=== PATIENT | male | born 1935 | race Caucasian/White ===

== ENCOUNTER → 2017-01-24 | Outpatient (CLI) | payer MEDICARE ==
--- NOTE | 2017-01-24 11:56 | EST ---
DATE OF SERVICE: 01/24/2017 AGE: 81Y SEX: M HT: 67" WT: 185 lbs. Protocol Devan: X Other: Stress Stage: 2 Dur. of Exercise: 5:00 *Heart Rate Blood Pressure *Rest: 69 Rest: 135/75 * *Max. Achieved: 142 Maximum BP: 215/71 85% PMHR: 120 100% PMHR: 141 *METS: 7.0 INDICATIONS: Abnormal EKG. MEDICATIONS: Aspirin, losartan, atorvastatin. Pretesting physical examination showed a heart rate of 69, pressure is 135/75 mmHg. Baseline EKG showed sinus rhythm with RBBB. The patient exercised on the treadmill according to Devan protocol for a total of 5 minutes and achieved 7 of METs with max heart rate was 142, which is about 100% of maximum predicted heart rate. Maximum blood pressure 215/71 mmHg. Clinically, the patient developed chest discomfort without any chest pain. The EKG did not show any significant ST or T-wave abnormalities consistent with ischemia. CONCLUSION: 1. Good exercise capacity. 2. Normal EKG in response to exercise.
== END | disposition home or self-care (01) ==
LOC: RADNMMAIN 10:58
PROVIDERS: ATTEND Internal Medicine Geriatric Medicine
DX: R94.31 Abnormal electrocardiogram [ECG] [EKG] (principal)
CPT/HCPCS: 93017

== ENCOUNTER → 2017-06-06 | Outpatient (CLI) | payer MEDICARE ==
--- NOTE | 2017-06-06 12:16 | US ---
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 Stenosis EXAM MEASUREMENTS: RIGHT: Peak Systolic Velocity (PSV) cm/sec ----- Right CCA: 79.1 ----- Right ICA: 91.0 ----- Right ECA: 109.6 ICA/CCA ratio: 1.2 RIGHT: End Diastole cm/sec ----- Right CCA: 21.0 ----- Right ICA: 28.2 ----- Right ECA: 12.4 LEFT: Peak Systolic Velocity (PSV) cm/sec ----- Left CCA: 85.5 ----- Left ICA: 72.1 ----- Left ECA: 105.7 ICA/CCA ratio: 0.8 LEFT: End Diastole cm/sec ----- Left CCA: 20.5 ----- Left ICA: 21.5 ----- Left ECA: 13.7 VERTEBRALS (direction of flow): Right Vertebral: Antegrade Left Vertebral: Antegrade Rhythm: Normal Moderate plaque noted bilateral bifurcations. No evidence of significant stenosis IMPRESSION: Moderate carotid bulb plaquing bilaterally without hemodynamically significant stenosis of either carotid system.
--- NOTE | 2017-06-06 19:02 | ECHOF ---
Referral Reason:I34.0 nonrheumatic mitral regurgitation MEASUREMENTS -------- HEIGHT: 170.2 cm WEIGHT: 81.6 kg BP: RVIDd: 3.4 cm (< 3.3) IVSd: 1.0 cm (0.6 - 1.1) LVIDd: 4.9 cm (3.9 - 5.3) LVPWd: 1.1 cm (0.6 - 1.1) IVSs: 1.8 cm LVIDs: 3.4 cm LVPWs: 1.9 cm LAESV Index (A-L): 27.11 ml/m Ao Diam: 3.6 cm (2.0 - 3.7) AV Cusp: 1.6 cm (1.5 - 2.6) LA Diam: 4.4 cm (2.7 - 3.8) MV E Drew: 0.96 m/s MV DecT: 390 ms MV A Drew: 1.47 m/s MV E/A Ratio: 0.65 RAP: 5.00 mmHg RVSP: 30.04 mmHg FINDINGS -------- Sinus rhythm. This was a technically adequate study. The left ventricular size is normal. There is borderline concentric left ventricular hypertrophy. Overall left ventricular systolic function is normal with, an EF between 55 - 60 %. The right ventricle is normal in size and function. LA is midly dilated 29-33ml/m2. The right atrium is normal in size. There is moderate aortic valve sclerosis. There is no evidence of aortic regurgitation. There is no evidence of aortic stenosis. The mitral valve leaflets are mild to moderately thickened. Moderate mitral annular calcification present. There is trace to mild mitral regurgitation. Mild tricuspid regurgitation present. Right ventricular systolic pressure is normal at < 35 mmHg. There is no evidence of pulmonary hypertension. Trace/mild (physiologic) pulmonic regurgitation. The aortic root size is normal. IVC Not well visulized. The pericardium is normal. There is no pericardial effusion. CONCLUSIONS -------- 1. Sinus rhythm. 2. There is trace to mild mitral regurgitation. 3. Mild tricuspid regurgitation present. 4. Right ventricular systolic pressure is normal at < 35 mmHg. 5. There is no evidence of pulmonary hypertension. 6. Trace/mild (physiologic) pulmonic regurgitation. 7. The aortic root size is normal. 8. IVC Not well visulized. 9. There is no pericardial effusion. 10. This was a technically adequate study. 11. The left ventricular size is normal. 12. There is borderline concentric left ventricular hypertrophy. 13. Overall left ventricular systolic function is normal with, an EF between 55 - 60 %. 14. LA is midly dilated 29-33ml/m2. 15. There is moderate aortic valve sclerosis. 16. The mitral valve leaflets are mild to moderately thickened. 17. Moderate mitral annular calcification present. INSPECTOR REPAIRER: Aravind Bee RDCS
== END | disposition home or self-care (01) ==
LOC: RADUSWWP 10:13
PROVIDERS: ATTEND Internal Medicine Geriatric Medicine
DX: I08.3 Combined rheumatic disorders of mitral, aortic and tricuspid valves (principal); I65.23 Occlusion and stenosis of bilateral carotid arteries
CPT/HCPCS: 93306; 93880

== ENCOUNTER → 2017-12-17 | Outpatient (CLI) | payer MEDICARE ==
--- NOTE | 2017-12-17 08:44 | US ---
EXAMINATION TYPE: US carotid duplex BILAT DATE OF EXAM: 12/17/2017 COMPARISON: US 06/06/2017 CLINICAL HISTORY: Occlusion/stenosis of unspec carotid artery I65.29. Occasional dizziness EXAM MEASUREMENTS: RIGHT: Peak Systolic Velocity (PSV) cm/sec ----- Right CCA: 104.0 ----- Right ICA: 91.4 ----- Right ECA: 198.9 ICA/CCA ratio: 0.9 RIGHT: End Diastole cm/sec ----- Right CCA: 19.8 ----- Right ICA: 22.8 ----- Right ECA: 20.0 LEFT: Peak Systolic Velocity (PSV) cm/sec ----- Left CCA: 104.3 ----- Left ICA: 96.3 ----- Left ECA: 182.6 ICA/CCA ratio: 0.9 LEFT: End Diastole cm/sec ----- Left CCA: 13.9 ----- Left ICA: 22.0 ----- Left ECA: 13.0 VERTEBRALS (direction of flow): Right Vertebral: Antegrade Left Vertebral: Antegrade Rhythm: Normal Mild to moderate amount of plaque visualized in bilateral bulbs. Elevated velocities visualized in bi lateral ECAs. IMPRESSION: 1. Plaque noted bilaterally with no significant hemodynamic stenosis within the internal carotid chio ry. Criteria for Assigning % of Stenosis / Diameter reduction (Estimation based on the indirect measurements of the internal carotid artery velocities (ICA PSV). 1. Normal (no stenosis)=ICA PSV < 125 cm/s: ratio < 2.0: ICA EDV<40 cm/s. 2. Less than 50% stenosis=ICA PSV < 125 cm/s: ratio < 2.0: ICA EDV<40 cm/s. 3. 50 to 69% stenosis=ICA PSV of 125 to 230 cm/s: ration 2.0 ? 4.0: ICA EDV 40-100 cm/s. 4. Greater than 70% stenosis to near occlusion= ICA PSV > 230 cm/s: ratio > 4.0: ICA EDV > 100 cm/s. 5. Near occlusion= ICA PSV velocities may be low or undetectable: variable ratio and ICA EDV. 6. Total occlusion=unable to detect flow.
== END | disposition home or self-care (01) ==
LOC: RADUSWWP 08:13
PROVIDERS: ATTEND Internal Medicine Geriatric Medicine
DX: I65.23 Occlusion and stenosis of bilateral carotid arteries (principal)
CPT/HCPCS: 93880

== ENCOUNTER 2018-01-22 16:20 | Inpatient (IN) | payer MEDICARE ==
--- NOTE | 2018-01-22 16:50 | ED ---
Chest Pain HPI - General Chief Complaint: Chest Pain Stated Complaint: Chest Pain Time Seen by Provider: 01/22/18 16:39 Source: patient, RN notes reviewed Mode of arrival: ambulatory Limitations: no limitations - History of Present Illness Initial Comments: This is a 82-year-old male who presents with complaints of about one week of intermittent midsternal chest discomfort he describes it as a tightness at the worst 5/10 severity sometimes feels better when he stretches out he has no fevers chills nausea vomiting sweats cough or phlegm production with it. It just bothersome because is been intermittent and recurrent. Nothing seems make it better nothing seems to make it worse. He is pain-free MD Complaint: chest pain - Related Data Home Medications Medication Instructions Recorded Confirmed Calcium Polycarbophil [Fibercon] 625 mg PO Q72H 03/21/14 01/22/18 Losartan Potassium [Losartan 100 mg PO HS 03/21/14 01/22/18 Potassium] Atorvastatin [Lipitor] 10 mg PO HS 01/22/18 01/22/18 Gabapentin [Neurontin] 200 mg PO HS 01/22/18 01/22/18 Allergies Allergy/AdvReac Type Severity Reaction Status Date / Time No Known Allergies Allergy Verified 01/22/18 16:59 Review of Systems ROS Statement: Those systems with pertinent positive or pertinent negative responses have been documented in the HPI. ROS Other: All systems not noted in ROS Statement are negative. EKG Findings - EKG Results: EKG: interpreted by KELSEY, sinus rhythm (Sinus rhythm right bundle-branch block old inferior changes rate was 75 appear interval 202 QRS duration 132 daily since QTC of 398/444) Past Medical History Past Medical History: GERD/Reflux, Hypertension Additional Past Medical History / Comment(s): Dr watching blood sugars; borderline per pt. Polio at age 16. Ringing in ears. History of Any Multi-Drug Resistant Organisms: None Reported Past Surgical History: Bladder Surgery, Hernia Repair Additional Past Surgical History / Comment(s): stomach ulcer surgery. CATARACT SURGERY. Past Anesthesia/Blood Transfusion Reactions: No Reported Reaction Past Psychological History: No Psychological Hx Reported Smoking Status: Former smoker - Past Family History Father Family Medical History: Cancer Additional Family Medical History / Comment(s): BLADDER CANCER General Exam - General Exam Comments Initial Comments: This is a well-developed well-nourished awake alert oriented 3 male Limitations: no limitations General appearance: alert, in no apparent distress Head exam: Present: atraumatic, normocephalic, normal inspection Eye exam: Present: normal appearance, PERRL, EOMI. Absent: scleral icterus, conjunctival injection, periorbital swelling ENT exam: Present: normal exam, mucous membranes moist Neck exam: Present: normal inspection. Absent: tenderness, meningismus, lymphadenopathy Respiratory exam: Present: normal lung sounds bilaterally. Absent: respiratory distress, wheezes, rales, rhonchi, stridor, chest wall tenderness Cardiovascular Exam: Present: regular rate, normal rhythm, normal heart sounds. Absent: systolic murmur, diastolic murmur, rubs, gallop, clicks GI/Abdominal exam: Present: soft, normal bowel sounds. Absent: distended, tenderness, guarding, rebound, rigid Extremities exam: Present: normal inspection, full ROM, normal capillary refill. Absent: tenderness, pedal edema, joint swelling, calf tenderness Back exam: Present: normal inspection Neurological exam: Present: alert, oriented X3, CN II-XII intact Psychiatric exam: Present: normal affect, normal mood Skin exam: Present: warm, dry, intact, normal color. Absent: rash Course Vital Signs 01/22/18 01/22/18 01/22/18 16:29 17:17 18:47 Temperature 97.8 F 97.6 F Pulse Rate 78 79 64 Respiratory 16 16 15 Rate Blood Pressure 151/90 174/75 181/84 O2 Sat by Pulse 98 96 95 Oximetry 01/22/18 21:53 Temperature 97.3 F L Pulse Rate 68 Respiratory 18 Rate Blood Pressure 167/91 O2 Sat by Pulse 98 Oximetry Chest Pain MDM - MDM I did review the imaging and report no acute findings no evidence of PE. I did discuss case with Dr. Urban the patient will be admitted with cardiology consultation. Critical Care Time Critical Care Time: Yes Critical Care Time: 31 minutes of critical care time which includes initial presentation with history physical labs x-rays several reevaluation the patient discussed with the patient family regarding findings scheduled the admitting physicians initial orders and documentation of the above. Disposition Clinical Impression: Chest pain, Unstable angina pectoris Disposition: ADMITTED IP TO THIS [facility] Condition: Stable Referrals: Valdez Cortez MD [Primary Care Provider] - 1-2 days
[2018-01-22 17:03] LABS: Basophils # (A) 0.1 k/uL (0-0.2); Basophils % (A) 1 %; Eosinophils # (A) 0.3 k/uL (0-0.7); Eosinophils % (A) 4 %; HCT 37.7 % (39.0-53.0); HGB 12.8 gm/dL (13.0-17.5); Lymphocytes # (A) 1.7 k/uL (1.0-4.8); Lymphocytes % (A) 23 %; MCH 29.1 pg (25.0-35.0); MCV 85.7 fL (80.0-100.0); Mean Platelet Volume 7.3; Monocytes # (A) 0.6 k/uL (0-1.0); Monocytes % (A) 8 %; Neutrophils # (A) 4.5 k/uL (1.3-7.7); Neutrophils % (A) 61 %; Platelet Count 227 k/uL (150-450); RDW 14.5 % (11.5-15.5); WBC 7.3 k/uL (3.8-10.6)
[2018-01-22 17:14] LABS: Albumin 4.4 g/dL (3.5-5.0); Calcium 9.6 mg/dL (8.4-10.2); Magnesium 2.1 mg/dL (1.6-2.3); Potassium 4.7 mmol/L (3.5-5.1); Total Bilirubin 0.3 mg/dL (0.2-1.3); Total Protein 7.1 g/dL (6.3-8.2)
[2018-01-22 17:16] LABS: Partial Thromboplastin Time 25.5 sec (22.0-30.0); Prothrombin Time 9.9 sec (9.0-12.0)
[2018-01-22 17:17] LABS: D-Dimer 0.7 mg/L FEU (<0.60)
[2018-01-22 17:38] LABS: Creatine Kinase MB 10.5 ng/mL (0.0-2.4); Troponin I 0.035 ng/mL (0.000-0.034)
--- NOTE | 2018-01-22 19:19 | XR ---
EXAMINATION: XR chest 2V DATE AND TIME: 01/22/2018 6:14 PM ORDERING PROVIDER: Sameer Ovalle MD CLINICAL INDICATION: Chest Pain and dyspnea TECHNIQUE: PA and lateral COMPARISON: None. DESCRIPTION: The lungs are clear. The pleural spaces are negative. The cardiac silhouette is mildly enlarged. The mediastinal and pleural silhouettes are unremarkable. The skeletal structures are intact without focal findings. The soft tissues are unremarkable. IMPRESSION: NO ACUTE PROCESS.
--- NOTE | 2018-01-22 19:41 | CT ---
EXAMINATION TYPE: CT angio chest with contrast and with 3-D reconstruction renderings. DATE OF EXAM: 01/22/2018 7:29 PM COMPARISON: NONE HISTORY: Chest pressure and shortness of breath. CT DLP: 357 mGycm. Automated exposure control for dose reduction was used. CONTRAST: CTA scan of the thorax is performed with IV Contrast, patient injected with 77 mL of Isovue 370, pulmonary embolism protocol. 3-D reconstruction renderings. FINDINGS: LUNGS AND PLEURAL SPACES: The lungs are grossly clear, there is no concerning parenchymal mass or nod ule identified. There is no pleural effusion or pneumothorax seen. The tracheobronchial tree is pa tent. MEDIASTINUM: There is satisfactory enhancement of the pulmonary artery and its branches, there is no CT evidence for pulmonary embolism. There are no greater than 1 cm hilar or mediastinal lymph nodes. The aorta is unremarkable. There is mild cardiomegaly with prominent proximal and mid left and right coronary calcifications. No pericardial effusion. OTHER: No additional significant abnormality is seen. IMPRESSION: NEGATIVE FOR PULMONARY EMBOLISM. PROMINENT LEFT AND RIGHT CORONARY CALCIFICATIONS WITH MILD CARDIOMEGALY.
[2018-01-22] MEDS ORDERED: HEPARIN SODIUM,PORCINE 5,000 UNIT/ML 1 ML VIAL IV ONE (23:00)
[2018-01-22] MEDS ORDERED: NITROGLYCERIN SL TABS 0.4 MG TAB SUBLINGUAL PRN ×2 (23:00→23:26)
[2018-01-22] MEDS: HEPARIN SODIUM,PORCINE/D5W PMX 25,000 UNIT in DEXTROSE/WATER 1 500ML.BAG IV SCH (23:30)
[2018-01-22] MEDS ORDERED: HEPARIN SODIUM,PORCINE/D5W PMX 25,000 UNIT in DEXTROSE/WATER 1 500ML.BAG IV SCH (23:30)
[2018-01-23 00:20] LABS: Creatine Kinase MB 9.4 ng/mL (0.0-2.4); Troponin I 0.056 ng/mL (0.000-0.034)
[2018-01-23] MEDS: NITROGLYCERIN OINT 1 INCH/GM PACKET TOPICAL SCH ×4 (01:06→15:44)
[2018-01-23 07:03] LABS: Cholesterol 176 mg/dL (<200); Creatine Kinase MB 11.6 ng/mL (0.0-2.4); HDL Cholesterol 57 mg/dL (40-60); LDL Cholesterol,Calculated 90 mg/dL (0-99); Triglycerides 146 mg/dL (<150); Troponin I 0.069 ng/mL (0.000-0.034)
[2018-01-23] MEDS: ASPIRIN 325 MG TAB PO SCH (08:07)
[2018-01-23] MEDS ORDERED: ASPIRIN 325 MG TAB PO SCH (09:00)
[2018-01-23] MEDS ORDERED: REGADENOSON 0.4 MG/5 ML SYRINGE IV ONE (10:10)
[2018-01-23] MEDS ORDERED: AMINOPHYLLINE 500 MG/20 ML VIAL IV PRN (10:10)
[2018-01-23] MEDS ORDERED: CALCIUM POLYCARBOPHIL 625 MG TAB PO SCH (11:00)
[2018-01-23] MEDS: SODIUM CHLORIDE 0.9% 1,000 ML IV SCH (11:11)
[2018-01-23] MEDS: METOPROLOL TARTRATE 12.5 MG TAB PO SCH (11:13)
--- NOTE | 2018-01-23 13:12 | P.HPIM ---
History of Present Illness H&P Date: 01/23/18 Chief Complaint: chest pain. This is an 82-year-old male one of Dr. Cortez with a previous medical history significant for hypertension and hypertensive cardiovascular disease with left ventricular hypertrophy, hyperlipidemia, GERD, patient presented to the emergency department at [facility] yesterday with the recurrent chest pain associated with increased shortness of breath, and chest tightness for the past week or so, patient had a twelve-lead EKG that did not show any evidence of acute of normalities, however his cardiac enzymes are elevated, surprisingly his d-dimer was elevated he ended up going for computed tomography scan of the chest that was negative for pulmonary medicine however it did show significant calcification in the right and left coronary arteries, subsequently the patient was admitted to the hospital he is scheduled to go for left heart catheterization tomorrow morning. Review of Systems Constitutional: Denies anorexia, Denies chronic headaches, Denies lethargy, Denies weakness, Denies weight gain Eyes: denies blurred vision, denies bulging eye, denies decreased vision Ears: deny: decreased hearing Ears, nose, mouth and throat: Denies dysphagia, Denies sore throat Cardiovascular: Reports chest pain, Reports decreased exercise tolerance, Reports dyspnea on exertion, Reports high blood pressure, Reports shortness of breath, Denies phlebitis, Denies rapid heart beat, Denies syncope Respiratory: Denies congestion, Denies cough, Denies cough with sputum, Denies home oxygen, Denies sleep apnea, Denies snoring, Denies wheezing Gastrointestinal: Reports heartburn, Denies abdominal pain, Denies melena, Denies nausea, Denies vomiting Genitourinary: Denies dysuria, Denies polyuria Musculoskeletal: Denies myalgias Musculoskeletal: absent: ankle pain, ankle stiffness, ankle swelling, elbow pain , elbow stiffness, elbow swelling, foot pain, foot stiffness, foot swelling, hand pain, hand stiffness, hand swelling, hip pain, hip stiffness, hip swelling , knee pain, knee stiffness, knee swelling, shoulder pain, shoulder stiffness, shoulder swelling, wrist pain, wrist stiffness, wrist swelling Neurological: Denies numbness, Denies weakness Psychiatric: Denies anxiety, Denies depression Endocrine: Denies fatigue, Denies weight change Past Medical History Past Medical History: Chest Pain / Angina, GERD/Reflux, Hyperlipidemia, Hypertension, Prostate Disorder Additional Past Medical History / Comment(s): Dr watching blood sugars; borderline per pt. Polio at age 16. Ringing in ears. History of Any Multi-Drug Resistant Organisms: None Reported Past Surgical History: Back Surgery, Bladder Surgery, Hernia Repair Additional Past Surgical History / Comment(s): stomach ulcer surgery. CATARACT SURGERY. bladder cancer; back surger (laminectomy apr 2016) Past Anesthesia/Blood Transfusion Reactions: No Reported Reaction Past Psychological History: No Psychological Hx Reported Smoking Status: Former smoker (patient is followed by to pick every day smoked for about 4 years ago 22 was 49-year-old.) Past Alcohol Use History: Daily (patient drinks about 6 beers of the bases or 2 cocktails.) Additional Past Alcohol Use History / Comment(s): QUIT SMOKING 1984 STARTED SMOKING 1946 Past Drug Use History: None Reported - Past Family History Father Family Medical History: Cancer (father at age of 86 from bladder cancer.) Additional Family Medical History / Comment(s): BLADDER CANCER Mother Family Medical History: Coronary Artery Disease (CAD) (mother at age of 60 from the CABG and diabetes complications), Diabetes Mellitus Additional Family Medical History / Comment(s): had open heart surgery Brother(s) Family Medical History: Coronary Artery Disease (CAD) (patient had 3 brothers one of them from CAD the other one from lung cancer and MS the third one from COPD.) Daughter(s) Family Medical History: No Reported History (patient has 2 daughters no major medical problems) Son(s) Family Medical History: No Reported History (patient has one son no major medical problems.) Medications and Allergies Home Medications Medication Instructions Recorded Confirmed Type Calcium Polycarbophil [Fibercon] 625 mg PO Q72H 03/21/14 01/22/18 History Losartan Potassium [Losartan 100 mg PO HS 03/21/14 01/22/18 History Potassium] Atorvastatin [Lipitor] 10 mg PO HS 01/22/18 01/22/18 History Gabapentin [Neurontin] 200 mg PO HS 01/22/18 01/22/18 History Allergies Allergy/AdvReac Type Severity Reaction Status Date / Time No Known Allergies Allergy Verified 01/22/18 16:59 Physical Exam Vitals: Vital Signs Temp Pulse Pulse Resp BP BP Pulse Ox 01/23/18 08:00 97.3 F L 61 18 144/77 97 01/23/18 03:27 60 18 01/23/18 03:20 97.2 F L 60 18 131/79 95 01/23/18 01:20 62 17 01/23/18 00:30 97 F L 62 17 150/95 01/23/18 00:09 60 16 163/79 95 01/23/18 00:02 97 F L 62 17 149/96 95 01/22/18 23:06 62 16 137/65 96 01/22/18 23:00 95 01/22/18 21:53 97.3 F L 68 18 167/91 98 01/22/18 18:47 97.6 F 64 15 181/84 95 01/22/18 17:17 79 16 174/75 96 01/22/18 16:29 97.8 F 78 16 151/90 98 Intake and Output 01/22/18 01/23/18 01/23/18 22:59 06:59 14:59 Intake Total 260 153.659 Balance 260 153.659 Intake: IV 60 0.9@10ml/hr 60 Intake, IV Titration 153.659 Amount Heparin Sodium,Porcine/ 153.659 D5w Pmx 25,000 unit In Dextrose/Water 1 500ml. bag @ 12 UNITS/KG/HR 20. 13 mls/hr IV .Q24H [facility] Rx #:[id number] Oral 200 0 Other: Voiding Method Toilet # Voids 1 Weight 83.915 kg 86.5 kg - Constitutional General appearance: average body habitus, no acute distress - EENT Eyes: anicteric sclerae, EOMI, PERRLA, no ptosis, no scleral icterus, normal appearance ENT: hearing grossly normal, NA/AT, normal oropharynx, no thrush Ears: bilateral: normal - Neck Neck: no lymphadenopathy, normal ROM, no rigidity, no stridor, no thyromegaly Carotids: bilateral: upstroke normal Thyroid: bilateral: normal size - Respiratory Respiratory: bilateral: diminished, negative: dullness, rales, rhonchi, wheezing , prolonged expiration, prolonged inspiration - Cardiovascular Rhythm: regular Heart sounds: normal: S1, S2 Abnormal Heart Sounds: systolic murmur, no S3 Gallop, no S4 Gallop - Gastrointestinal General gastrointestinal: normal bowel sounds, soft, no splenomegaly, no tenderness, no umbilical hernia, no ventral hernia - Integumentary Integumentary: normal, normal turgor - Neurologic Neurologic: CNII-XII intact - Musculoskeletal Musculoskeletal: strength equal bilaterally - Psychiatric Psychiatric: A&O x's 3, appropriate affect, intact judgment & insight Results CBC & Chem 7: 01/22/18 16:45 01/22/18 16:45 Labs: Abnormal Lab Results - Last 24 Hours (Table) 01/22/18 01/22/18 01/22/18 Range/Units 16:45 16:45 16:45 Hgb 12.8 L (13.0-17.5) gm/dL Hct 37.7 L (39.0-53.0) % APTT (22.0-30.0) sec D-Dimer (<0.60) mg/L FEU Chloride 108 H (98-107) mmol/L Carbon Dioxide 18 L (22-30) mmol/L BUN 22 H (9-20) mg/dL Total Creatine Kinase 437 H (55-170) U/L CK-MB (CK-2) 10.5 H* (0.0-2.4) ng/mL Troponin I 0.035 H* (0.000-0.034) ng/mL 01/22/18 01/22/18 01/23/18 Range/Units 16:45 23:16 06:11 Hgb (13.0-17.5) gm/dL Hct (39.0-53.0) % APTT (22.0-30.0) sec D-Dimer 0.70 H (<0.60) mg/L FEU Chloride (98-107) mmol/L Carbon Dioxide (22-30) mmol/L BUN (9-20) mg/dL Total Creatine Kinase 415 H 528 H (55-170) U/L CK-MB (CK-2) 9.4 H* 11.6 H* (0.0-2.4) ng/mL Troponin I 0.056 H* 0.069 H* (0.000-0.034) ng/mL 01/23/18 Range/Units 06:11 Hgb (13.0-17.5) gm/dL Hct (39.0-53.0) % APTT 57.7 H (22.0-30.0) sec D-Dimer (<0.60) mg/L FEU Chloride (98-107) mmol/L Carbon Dioxide (22-30) mmol/L BUN (9-20) mg/dL Total Creatine Kinase (55-170) U/L CK-MB (CK-2) (0.0-2.4) ng/mL Troponin I (0.000-0.034) ng/mL Thrombosis Risk Factor Assmnt - DVT/VTE Prophylaxis DVT/VTE Prophylaxis: Pharmacologic Prophylaxis ordered - Choose All That Apply Each Risk Factor Represents 3 Points: Age 75 years or older Thrombosis Risk Factor Assessment Total Risk Factor Score: 3 Thrombosis Risk Factor Assessment Level: Moderate Risk Assessment and Plan Assessment: Assessment and plan: 1. Chest pain with slight elevation of the troponin stenosis of non-ST elevation MS. Patient was started on heparin drip, aspirin 325 mg once every day, Lipitor 80 mg orally once every day, metoprolol 25 mg orally twice every day, cardiology consultation for left heart catheterization. Echocardiogram will be obtained as well. 2. Hypertension and hypertensive cardio vascular disease. Continue patient on losartan 100 mg orally once every day as well as metoprolol 12.5 mg orally once every day. 3. Hyperlipidemia. Continue Lipitor 80 mg orally once every day. 4. Peripheral neuropathy. Continue gabapentin 200 mg at bedtime. 5. Post polio. 6. DVT prophylaxis. Currently on heparin drip. 7. GI prophylaxis. Continue PPI. 8. Admit to inpatient. Estimate a length of stay 2 midnights. 9. Full code.
--- NOTE | 2018-01-23 14:48 | CONS ---
CONSULTATION This is the 82-year-old gentleman, a patient who sees Dr. Urban and myself. He has history of hypertensive, cardiovascular disease. He has had a previous stress test that was unremarkable as recently as January. He had a regular stress test walked for over 5 minutes without any EKG changes. However, for 1 week he has been experiencing exertional chest pressure suggestive of angina occurring more frequently. His troponin is mildly elevated in the borderline range, raising the possibility of non-ST elevation ND. He is generally not a complainer, but his symptoms are quite significant. CPK-MB is also elevated. Clinical picture suggests unstable angina/non ST elevation ND and I am recommending coronary angiography. I discussed with the patient the rationale, risks, benefits, and options for cardiac cath and PCI. He understands all details and wishes to proceed with the procedure. He also had a D-dimer elevation, but a CT angiography did not reveal any evidence of pulmonary embolism. There is a significant calcification of the coronary arteries noted. At the time of my evaluation, she is comfortable resting without symptoms. PAST MEDICAL HISTORY: 1. History of hypertension. 2. Hyperlipidemia. 3. No evidence of prior myocardial infarction or CVA with a negative stress test about a year ago. MEDICATIONS: At home include gabapentin, losartan, atorvastatin, calcium supplements allergies none. REVIEW OF SYSTEMS: Unremarkable other than above-mentioned facts. EXAMINATION: Blood pressure 130/70, pulse rate is 60 70 per minute regular HEENT: Unremarkable. Fundus was not examined by me. NECK: Supple. No JVD. I do not hear a carotid bruit. There is no thyromegaly heart exam reveals S1, S2 with a short systolic murmur at the base. Lungs are clear. Abdomen is soft, nontender. Lower extremities reveal normal pulses. No edema. Central nervous system is normal EKG revealed a sinus mechanism with a right bundle branch corrected revealed a sinus mechanism with a right bundle branch block pattern and borderline first-degree AV block. Nondiagnostic inferior Q-waves are noted. Neck is no acute changes. IMPRESSION: 1. For acute ischemic syndrome, probable non ST elevation ND. 2. Hypertension. 3. Hyperlipidemia. RECOMMENDATION: Recommendations I am recommending that we add a small dose of beta kary and continue aspirin and I increase the statin to a total atorvastatin 20 mg daily, put him on normal saline 75 mg 75 mL/h till tomorrow and proceed with coronary angiography and intervention if necessary. The rationale risks benefits options related to coronary angiography were explained to the patient. He understands all details and wishes to proceed with the procedure. MMEMMYL / IJN: [id number] /
[2018-01-23] MEDS ORDERED: ATORVASTATIN 20 MG TAB PO ONE (21:00)
[2018-01-23] MEDS: HEPARIN SODIUM,PORCINE/D5W PMX 25,000 UNIT in DEXTROSE/WATER 1 500ML.BAG IV SCH (22:53)
[2018-01-23] MEDS: GABAPENTIN 100 MG CAP PO SCH (22:59)
[2018-01-23] MEDS: LOSARTAN 50 MG TAB PO SCH (22:59)
[2018-01-24] MEDS: SODIUM CHLORIDE 0.9% 1,000 ML IV SCH ×3 (03:03→16:20)
[2018-01-24] MEDS: NITROGLYCERIN OINT 1 INCH/GM PACKET TOPICAL SCH ×3 (03:03→13:46)
[2018-01-24] MEDS ORDERED: ATORVASTATIN 80 MG TAB PO ONE (06:00)
[2018-01-24] MEDS ORDERED: ASPIRIN 325 MG TAB PO ONE (06:00)
[2018-01-24] MEDS: ASPIRIN 325 MG TAB PO SCH (06:42)
[2018-01-24] MEDS: METOPROLOL TARTRATE 12.5 MG TAB PO SCH (06:42)
[2018-01-24] MEDS ORDERED: IV FLUID CONTINUATION 350 ML IV ONE (11:00)
[2018-01-24] MEDS ORDERED: VERAPAMIL 2.5 MG/ML 2 ML AMP ONE (11:02)
[2018-01-24] MEDS ORDERED: LIDOCAINE 2% INJ 20 MG/ML (20 ML MDV) ONE (11:02)
[2018-01-24] MEDS ORDERED: MIDAZOLAM 2 MG/2 ML VIAL ONE (11:02)
[2018-01-24] MEDS ORDERED: diphenhydrAMINE 50 MG/ML 1 ML VIAL ONE (11:02)
[2018-01-24] MEDS ORDERED: MIDAZOLAM 2 MG/2 ML VIAL IVP ONE (11:16)
[2018-01-24] MEDS ORDERED: diphenhydrAMINE 50 MG/ML 1 ML VIAL IVP ONE (11:16)
[2018-01-24] MEDS: LIDOCAINE 2% INJ 20 MG/ML SQ ONE ×2 (11:20→11:58)
[2018-01-24] MEDS ORDERED: fentaNYL (PF) 50 MCG/ML 2 ML AMP ONE (11:21)
[2018-01-24] MEDS: fentaNYL (PF) 50 MCG/ML 2 ML AMP IVP ONE ×2 (11:22→12:51)
[2018-01-24] MEDS ORDERED: HEPARIN SODIUM 1,000 UN/ML (10ML VL) ONE (11:24)
[2018-01-24] MEDS ORDERED: VERAPAMIL SYRINGE (5 MG/10 ML) INTRAARTER ONE (11:24)
[2018-01-24] MEDS ORDERED: HEPARIN SODIUM 1,000 UN/ML (10ML VL) IV ONE (11:25)
[2018-01-24] MEDS ORDERED: BIVALIRUDIN BOLUS 250 MG/50 ML IV ONE (11:48)
[2018-01-24] MEDS ORDERED: BIVALIRUDIN 250 MG in SODIUM CHLORIDE 0.9% 50 ML IV ONE (11:49)
[2018-01-24] MEDS ORDERED: IOPAMIDOL-370 100ML BTL INJ ONE ×2 (12:00→12:47)
[2018-01-24] MEDS: NITROGLYCERIN 1000MCG/10ML SYRINGE INTRACORON ONE ×2 (12:42→12:46)
[2018-01-24] MEDS ORDERED: CLOPIDOGREL 75 MG TAB ONE (12:49)
[2018-01-24] MEDS ORDERED: CLOPIDOGREL 75 MG TAB PO ONE (12:54)
[2018-01-24] MEDS ORDERED: MAG HYDROX/AL HYDROX/SIMETH 30 ML CUP PO PRN (13:49)
[2018-01-24] MEDS ORDERED: ZOLPIDEM 5 MG TAB PO PRN (13:49)
[2018-01-24] MEDS ORDERED: RX INFO: IV CONTRAST WAS GIVEN 1 EACH MISC MISCELLANE PRN (13:49)
[2018-01-24] MEDS ORDERED: ATROPINE SULFATE 0.1 MG/ML 10ML SYRINGE IV PRN (13:49)
[2018-01-24] MEDS ORDERED: NITROGLYCERIN SL TABS 0.4 MG TAB SUBLINGUAL PRN (13:49)
[2018-01-24 14:35] VITALS: BMI 29.7
--- NOTE | 2018-01-24 16:43 | P.PN ---
Subjective Progress Note Date: 01/24/18 Principal diagnosis: Non-ST segment myocardial infarction presenting with unstable angina This is an 82-year-old male one of Dr. Cortez with a previous medical history significant for hypertension and hypertensive cardiovascular disease with left ventricular hypertrophy, hyperlipidemia, GERD, patient presented to the emergency department at [facility] yesterday with the recurrent chest pain associated with increased shortness of breath, and chest tightness for the past week or so, patient had a twelve-lead EKG that did not show any evidence of acute of normalities, however his cardiac enzymes are elevated, surprisingly his d-dimer was elevated he ended up going for computed tomography scan of the chest that was negative for pulmonary medicine however it did show significant calcification in the right and left coronary arteries, subsequently the patient was admitted to the hospital he is scheduled to go for left heart catheterization tomorrow morning. 01/24: Patient just came back 2 hours ago after a heart cath, patient reports one vessel that was stented and was 99% occluded, patient would return in 2-3 weeks according to him to have another stent performed, formal Report pending patient remains chest pain-free, no bradycardia Objective - Vital Signs Vital signs: Vital Signs Temp 97.9 F 01/24/18 08:20 Pulse 78 01/24/18 14:34 Resp 14 01/24/18 15:52 BP 150/72 01/24/18 15:34 Pulse Ox 95 01/24/18 14:34 Intake & Output 01/23/18 01/24/18 01/24/18 18:59 06:59 18:59 Intake Total 153.659 748.926 7241 Balance 153.659 232.195 2789 Weight 86.1 kg 86.1 kg Intake: IV 293 Intake, IV Titration 153.659 317.048 450 Amount Heparin Sodium,Porcine/ 153.659 317.048 D5w Pmx 25,000 unit In Dextrose/Water 1 500ml. bag @ 12 UNITS/KG/HR 20. 13 mls/hr IV .Q24H MENDEZ Rx #:[id number] Sodium Chloride 0.9% 1, 450 000 ml @ 75 mls/hr IV . [id number] MENDEZ Rx#:[id number] Oral 0 440 Other: Voiding Method Toilet Toilet # Voids 1 - Constitutional General appearance: Present: cooperative, no acute distress - EENT Eyes: Present: anicteric sclerae, EOMI, dentition normal, normal appearance ENT: Present: hearing grossly normal, NA/AT, normal oropharynx - Neck Neck: Present: normal ROM - Respiratory Respiratory: bilateral: CTA, negative: dullness, wheezing, prolonged expiration , prolonged inspiration - Cardiovascular Rhythm: regular Heart sounds: normal: S1, S2 Abnormal Heart Sounds: Absent: systolic murmur, diastolic murmur, rub, S3 Gallop , S4 Gallop, click, other - Gastrointestinal General gastrointestinal: Present: normal bowel sounds, soft - Neurologic Neurologic: Present: CNII-XII intact - Musculoskeletal Musculoskeletal: Present: gait normal, strength equal bilaterally - Psychiatric Psychiatric: Present: A&O x's 3, appropriate affect - Labs CBC & Chem 7: 01/22/18 16:45 01/22/18 16:45 Labs: Abnormal Lab Results - Last 24 Hours (Table) 01/24/18 Range/Units 06:04 APTT 49.0 H (22.0-30.0) sec Assessment and Plan Plan: 1. Chest pain with slight elevation of the troponin stenosis of non-ST elevation UT. Patient was started on heparin drip, aspirin 325 mg once every day, Lipitor 80 mg orally once every day, metoprolol 25 mg orally twice every day, cardiology consultation for left heart catheterization. Echocardiogram will be obtained as well. Currently pending Cardiac cath performed 01/24/2018, coronary disease stenosis noted, no preliminary formal report yet, stent placed on 99% One vessel, has 2 vessel disease 2. Hypertension and hypertensive cardio vascular disease. Continue patient on losartan 100 mg orally once every day as well as metoprolol 12.5 mg orally once every day. 3. Hyperlipidemia. Continue Lipitor 80 mg orally once every day. 4. Peripheral neuropathy. Continue gabapentin 200 mg at bedtime. 5. Post polio. 6. DVT prophylaxis. Currently on heparin drip. 7. GI prophylaxis. Continue PPI. 8. Admit to inpatient. Estimate a length of stay 2 midnights. 9. Full code.
--- NOTE | 2018-01-24 17:11 | CC ---
CARDIAC CATHETERIZATION REPORT DATE OF SERVICE: 01/24/2018 PROCEDURES: 1. Left heart catheterization and coronary angiography. 2. Percutaneous transluminal coronary angioplasty and stenting of complex calcified proximal right coronary artery with a drug-eluting stent. PERFORMED BY: Dr. Angela Hay. Moderate conscious sedation time was 109 minutes and patient was administered fentanyl, Benadryl and his oxygen saturation, hemodynamics and vital signs were monitored very closely. CLINICAL INFORMATION: Mr. Anibal Oviedo is an 82-year-old gentleman with history of hypertension and hyperlipidemia who presented to the hospital yesterday with symptoms strongly suggestive of angina with mild elevation of troponin suggestive of [id number] MO. After stabilizing him, he was advised coronary angiography, given his presentation, and there was evidence of significant coronary calcification on a CT angiography which was also performed. I discussed the rationale for cardiac cath with the patient, and daughter. They understood all details and wished to proceed with the procedure. PROCEDURE NOTE: Under local anesthesia and strict aseptic precautions, a 6-Indonesian introducer was used and placed in the right radial artery. Using an Ultimate 1 catheter, I performed selective coronary angiography of the left coronary artery. There was a severe tortuosity at the junction of the brachial axillary artery and also at the entry into the ascending aorta. However, I was able to get selective coronary angiography of the left system with good pictures. I then switched over to a JR 3.5 catheter, and with this I was able to get selective coronary angiography of the right coronary artery and also checked LV pressures with the same catheter but did not perform LV gram. I noted that he had a calcified proximal RCA lesion of nearly 90% or more in a very eccentric area. The entire vessel was heavily calcified. There was also a significant lesion in the obtuse marginal branch of circumflex which was about a 2.25 to 2.5 caliber vessel of about 70%, again in a calcified area. LAD did not have significant disease, but there were minor diffuse irregularities. Rest of circumflex was also unremarkable. Distal RCA also had a 60% lesion as well before bifurcation. I recommended intervention that was performed in the same setting. LV pressures were performed, but LV gram was not performed. FINDINGS: Left ventricular end-diastolic pressure was about 16 mmHg without any gradient across the aortic valve. LEFT MAIN CORONARY ARTERY: Short, patent, disease-free vessel that bifurcates into LAD and circumflex. Left main itself is free of significant disease. This is a short calcified vessel. LEFT ANTERIOR DESCENDING CORONARY ARTERY: This is a good-caliber vessel. It extends along the anterior wall. There is about a 30% narrowing in the mid portion. The vessel is heavily calcified. Several diagonal branches and several septal branches are seen, free of significant disease, and it runs all the way to the apex to curve over the apex to supply the inferoapical portion of the left ventricle. LEFT POSTERIOR CIRCUMFLEX CORONARY ARTERY: This is a nondominant vessel, gives off a single obtuse marginal that has an eccentric area of narrowing of 70% with calcification, and then the caliber of the vessel improves. The circumflex then continues distally and gives off a posterolateral branch. There are minor irregularities, but no significant disease is noted in the circumflex system. The distal posterolateral branch seems to also have a 30% to 40% narrowing. The second obtuse marginal appears to be the significant lesion, best seen in a 31-degree caudal projection frame #33. Circumflex has also a first obtuse marginal which has about a 40% lesion, and distal posterolateral branch has about a 30% to 35% lesion. RIGHT CORONARY ARTERY: Heavily calcified dominant vessel has a proximal lesion in a heavily calcified segment, eccentric in nature, with ulceration. This lesion is at least 90% or more. Beyond it the caliber improves, and distally towards the bifurcation there is about a 50% narrowing and there is a smaller PLV and larger PDA, both of which supply a fair amount of myocardium. The right coronary artery can be seen without angiography because of heavy calcification. LV gram was not performed. RECOMMENDATION: I recommended PCI of RCA and performed this in the same setting. PCI PROCEDURE DETAILS: I attempted PCI from the radial approach, but because of extreme tortuosity in the brachial artery as it enters into the ascending aorta, I recommended that we switch over to the femoral approach. I therefore gained access into the right femoral artery under local anesthesia and strict aseptic precautions and used a [facility] catheter and cannulated the right coronary artery. I used a run-through wire to cross the lesion. Wire was kept distally. I tried to advance a 3.0, 12 mm NC Trek balloon, but I had great difficulty because of calcification. I used a 1.5 caliber Trek balloon. With this I dilated the proximal lesion and then also the proximal segment prior to the lesion, and again I used a 2.0 caliber NC Trek balloon. With this I gave a second inflation. I then advanced a BMW wire next to the run-through wire. With 2 wires in position riding on the BMW wire, I was able to advance a 3.0 caliber 12 mm long Xience stent and deployed this at 14 atmospheres with excellent angiographic result. The patient had chest pain and inferior ST elevation. I then thought I should attempt a distal RCA lesion, but I felt that this was not critical. However, I had considerable difficulty advancing any stent beyond the existing stent in the proximal RCA because of the angulation of the wire and the wire bias. I therefore felt that the distal lesion also improved remarkably and the lesion was no more than 50% with a good flow, so I did not pursue the distal intervention. The branches of the RCA demonstrated very good flow; especially the PDA was of a good caliber. There was therefore a 50% lesion in the distal RCA just before bifurcation, which was not intervened. The sheath was taken out and a Perclose device used to secure hemostasis, and because of some oozing I applied a FemoStop. The TR band was applied to the right radial site with the saturation in the fingers of more than 93%. Excellent angiographic result of proximal RCA was achieved. Distal RCA had a 40% to 50% lesion which was not intervened and the obtuse marginal lesion also will be dealt with at a different time. Results were discussed with the patient and family and he was then sent to the room in a stable condition. MMODL / IJN: [id number] /
--- NOTE | 2018-01-24 17:11 | LTR ---
January 24, 2018 To: Dr. Cortez Re: Anibal Oviedo (39) Dear Dr. Cortez, Thank you for the opportunity to participate in the care of Mr. Anibal Oviedo. I am pleased to report to you that I was able to dilate his proximal RCA, which was a very significant, heavily calcified lesion with excellent angiographic result. Distally there is a 50% lesion which I did not address because of technical difficulties and also because of the fact that the lesion is not very critical, and we will pursue it at a later time if it becomes significant on the basis of a stress test. His obtuse marginal lesion will be dealt with at a later time, probably in the next 2 to 3 weeks. Please call if you have further questions. Thanks again for your referral. With kindest regards. Sincerely yours, Angela SINCLAIRL / IJN: [id number] /
[2018-01-24] MEDS ORDERED: ATORVASTATIN 80 MG TAB PO SCH (21:00)
--- NOTE | 2018-01-24 21:48 | PN ---
PROGRESS NOTE Mr. Oviedo is a gentleman who came in with chest discomfort suggestive of angina, had mild troponin elevation, has hypertension, hyperlipidemia. I advised cardiac cath and PCI if indicated. Risks, benefits, options, rationale were explained to the patient, and daughter. They understand all details and wished to proceed with the procedure. Vital signs are stable. S1, S2 heard normally. Lungs are clear. Abdomen and lower extremities unchanged. MMODL / IJN: [id number] /
[2018-01-24] MEDS: LOSARTAN 50 MG TAB PO SCH (22:15)
[2018-01-24] MEDS: GABAPENTIN 100 MG CAP PO SCH (22:15)
[2018-01-25] MEDS: SODIUM CHLORIDE 0.9% 1,000 ML IV SCH ×2 (05:12→05:13)
[2018-01-25 06:16] VITALS: RESP 16
[2018-01-25 06:38] LABS: Basophils % (A) 1 %; Eosinophils # (A) 0.3 k/uL (0-0.7); Eosinophils % (A) 5 %; HCT 34.4 % (39.0-53.0); HGB 11.4 gm/dL (13.0-17.5); Lymphocytes # (A) 1.5 k/uL (1.0-4.8); Lymphocytes % (A) 24 %; MCH 28.9 pg (25.0-35.0); MCHC 33.1 g/dL (31.0-37.0); MCV 87.2 fL (80.0-100.0); Monocytes # (A) 0.4 k/uL (0-1.0); Monocytes % (A) 7 %; Neutrophils # (A) 3.7 k/uL (1.3-7.7); Neutrophils % (A) 61 %; Platelet Count 182 k/uL (150-450); RBC 3.94 m/uL (4.30-5.90); RDW 15.1 % (11.5-15.5); WBC 6.1 k/uL (3.8-10.6)
[2018-01-25 06:47] LABS: Calcium 8.9 mg/dL (8.4-10.2); Potassium 4.5 mmol/L (3.5-5.1)
[2018-01-25] MEDS: METOPROLOL TARTRATE 12.5 MG TAB PO SCH (08:35)
[2018-01-25] MEDS ORDERED: ASPIRIN 81 MG PO SCH (09:00)
[2018-01-25 11:55] VITALS: BP 106/58; PULSE 58; TEMP 97
[2018-01-25] MEDS ORDERED: CLOPIDOGREL 75 MG TAB PO SCH (12:00)
--- NOTE | 2018-01-25 15:59 | P.DS ---
Providers Date of admission: 01/23/18 16:07 Attending physician: Lyly Urban Consults: 01/22/18 23:00 Consult Physician Urgent Consulting Provider: Martha Cristina Consult Reason/Comments: Chest pain Do you want consulting provider notified?: Yes 01/24/18 13:49 Consult Physician Routine Consulting Provider: [facility] Consult Reason/Comments: Post Interventional patient Do you want consulting provider notified?: Already Contacted Primary care physician: Valdez Cortez [facility] Course: This is an 82-year-old male one of Dr. Cortez with a previous medical history significant for hypertension and hypertensive cardiovascular disease with left ventricular hypertrophy, hyperlipidemia, GERD, patient presented to the emergency department at [facility] yesterday with the recurrent chest pain associated with increased shortness of breath, and chest tightness for the past week or so, patient had a twelve-lead EKG that did not show any evidence of acute of normalities, however his cardiac enzymes are elevated, surprisingly his d-dimer was elevated he ended up going for computed tomography scan of the chest that was negative for pulmonary medicine however it did show significant calcification in the right and left coronary arteries, subsequently the patient was admitted to the hospital he is scheduled to go for left heart catheterization tomorrow morning. 01/24: Patient just came back 2 hours ago after a heart cath, patient reports one vessel that was stented and was 99% occluded, patient would return in 2-3 weeks according to him to have another stent performed, formal Report pending patient remains chest pain-free, no bradycardia 01/25, patient stable, no chest pain or anginal symptoms, patient was cleared by cardiology, and vitals are stable, patient feels good to go home today. Final cardiac cath report to left heart cath, percutaneous transluminal coronary angioplasty and stenting of complex calcified proximal right coronary artery with drug-eluting stent, left circumflex 70% narrowing at the obtuse marginal, distal posterolateral branch 30-40% narrowing, first obtuse marginal branch was 40% lesion, left anterior descending 30% narrowing left main patent, patient 's to come back for a staged intervention with an upcoming procedure for stenting of the obtuse marginal lesion and distal RCA lesion in 2-3 weeks FINAL DIAGNOSIS 1. Chest pain with slight elevation of the troponin stenosis of non-ST elevation [place]. Patient was started on heparin drip, aspirin 325 mg once every day, and dual platelet treatments, Lipitor 80 mg orally once every day, metoprolol 25 mg orally twice every day, cardiology consultation for left heart catheterization. Echocardiogram will be obtained as well. Currently pending Cardiac cath performed 01/24/2018, coronary disease stenosis noted, no preliminary formal report yet, stent placed on 99% One vessel, has 2 vessel disease cardiac cath report to left heart cath, percutaneous transluminal coronary angioplasty and stenting of complex calcified proximal right coronary artery with drug-eluting stent, left circumflex 70% narrowing at the obtuse marginal, distal posterolateral branch 30-40% narrowing, first obtuse marginal branch was 40% lesion, left anterior descending 30% narrowing left main patent , patient's to come back for a staged intervention with an upcoming procedure for stenting of the obtuse marginal lesion and distal RCA lesion in 2-3 weeks 2. Hypertension and hypertensive cardio vascular disease. Continue patient on losartan 100 mg orally once every day as well as metoprolol 12.5 mg orally once every day. 3. Hyperlipidemia. Continue Lipitor 80 mg orally once every day. Discontinue 10 mg Lipitor at home 4. Peripheral neuropathy. Continue gabapentin 200 mg at bedtime. 5. Post polio. 6. Daily alcohol intake, patient was recommended to abstain as much as possible from alcohol exposure Full code. Discharge Medication List Calcium Polycarbophil [Fibercon] 625 mg PO Q72H 03/21/14 [History] Losartan Potassium 100 mg PO HS 03/21/14 [History] Gabapentin [Neurontin] 200 mg PO HS 01/22/18 [History] Aspirin 81 mg PO DAILY chew 01/25/18 [Rx] Atorvastatin [Lipitor] 80 mg PO HS #30 tab 01/25/18 [Rx] Clopidogrel [Plavix] 75 mg PO DAILY #30 tab 01/25/18 [Rx] Metoprolol Tartrate [Lopressor] 12.5 mg PO DAILY #30 tab 01/25/18 [Rx] Nitroglycerin Sl Tabs [Nitrostat] 0.4 mg SUBLINGUAL Q5M PRN #25 tab 01/25/18 [Rx ] Patient Condition at Discharge: Stable Plan - Discharge Summary Discharge Rx Participant: No New Discharge Prescriptions: New Aspirin 81 mg PO DAILY chew Atorvastatin [Lipitor] 80 mg PO HS #30 tab Clopidogrel [Plavix] 75 mg PO DAILY #30 tab Metoprolol Tartrate [Lopressor] 12.5 mg PO DAILY #30 tab Nitroglycerin Sl Tabs [Nitrostat] 0.4 mg SUBLINGUAL Q5M PRN #25 tab PRN Reason: Chest Pain Continue Losartan Potassium 100 mg PO HS Calcium Polycarbophil [Fibercon] 625 mg PO Q72H Gabapentin [Neurontin] 200 mg PO HS Discontinued Atorvastatin [Lipitor] 10 mg PO HS Discharge Medication List Calcium Polycarbophil [Fibercon] 625 mg PO Q72H 03/21/14 [History] Losartan Potassium 100 mg PO HS 03/21/14 [History] Gabapentin [Neurontin] 200 mg PO HS 01/22/18 [History] Aspirin 81 mg PO DAILY chew 01/25/18 [Rx] Atorvastatin [Lipitor] 80 mg PO HS #30 tab 01/25/18 [Rx] Clopidogrel [Plavix] 75 mg PO DAILY #30 tab 01/25/18 [Rx] Metoprolol Tartrate [Lopressor] 12.5 mg PO DAILY #30 tab 01/25/18 [Rx] Nitroglycerin Sl Tabs [Nitrostat] 0.4 mg SUBLINGUAL Q5M PRN #25 tab 01/25/18 [Rx ] Follow up Appointment(s)/Referral(s): Patrick Hay MD [STAFF PHYSICIAN] - 01/28/18 (Dr Hay's office will call you with an appointment time for January 28) Valdez Cortez MD [Primary Care Provider] - 1-2 days (call the office tomorrow for appointment) Patient Instructions/Handouts: *[facility] - After Heart Catheterization - Index Clerk Instructions Discharge Disposition: HOME SELF-CARE
--- NOTE | 2018-01-25 16:43 | PN ---
PROGRESS NOTE Mr. Oviedo underwent stenting of a proximal RCA which was a heavily calcified vessel with a good result. He is doing well today. His right groin and cath sites are clean and dry with a good pulse. Vital signs are stable. S1-S2 heard normally. Lungs are clear. Abdomen and lower extremity exam is unchanged. I have advised him doing to ambulate and if he has no further symptoms, he can be discharged and I will see him in the office next Friday. He has a circumflex marginal lesion and also a distal RCA lesion which will be addressed at a later date. I advised him not to do any strenuous activity after discharge and reviewed with him all his medications including dual antiplatelet therapy and statin agents at 80 mg daily. MMODL / IJN: [id number] /
[2018-01-25] MEDS ORDERED: ATORVASTATIN 20 MG TAB PO SCH (21:00)
== END 2018-01-25 15:09 | disposition home or self-care (01) | DRG 247 ==
LOC: EC 16:20 → 6SEL 23:00 → OBSVTOIN 01-23 16:07 → 6SEL 01-24 13:19
PROVIDERS: ADMIT Internal Medicine; ATTEND Internal Medicine
PROC: 4A023N7 Measurement of Cardiac Sampling and Pressure, Left Heart, Percutaneous Approach (ICD-10-PCS; principal; 2018-01-23)
PROC: B2111ZZ Fluoroscopy of Multiple Coronary Arteries using Low Osmolar Contrast (ICD-10-PCS; principal; 2018-01-23)
PROC: 027034Z Dilation of Coronary Artery, One Artery with Drug-eluting Intraluminal Device, Percutaneous Approach (ICD-10-PCS; principal; 2018-01-23)
DX: I21.4 Non-ST elevation (NSTEMI) myocardial infarction (principal); E78.5 Hyperlipidemia, unspecified; G62.9 Polyneuropathy, unspecified; I11.9 Hypertensive heart disease without heart failure; I25.110 Atherosclerotic heart disease of native coronary artery with unstable angina pectoris; K21.9 Gastro-esophageal reflux disease without esophagitis; I45.10 Unspecified right bundle-branch block; I44.0 Atrioventricular block, first degree; I25.84 Coronary atherosclerosis due to calcified coronary lesion; Z79.82 Long term (current) use of aspirin; Z79.899 Other long term (current) drug therapy; Z80.1 Family history of malignant neoplasm of trachea, bronchus and lung; Z80.52 Family history of malignant neoplasm of bladder; Z82.49 Family history of ischemic heart disease and other diseases of the circulatory system; Z82.5 Family history of asthma and other chronic lower respiratory diseases; Z83.3 Family history of diabetes mellitus; Z85.51 Personal history of malignant neoplasm of bladder; Z86.12 Personal history of poliomyelitis; Z87.11 Personal history of peptic ulcer disease; Z87.891 Personal history of nicotine dependence
CPT/HCPCS: 36415; 71046; 71275; 80048; 80053; 80061; 82150; 82550; 82553; 83690; 83735; 83880; 84484; 85025; 85379; 85610; 85730; 93005; 93458; 94760; 96365; 96376; 99291

== ENCOUNTER → 2018-02-04 | Outpatient (CLI) | payer MEDICARE ==
[2018-02-04 09:25] LABS: Calcium 9.4 mg/dL (8.4-10.2); Potassium 5.3 mmol/L (3.5-5.1)
[2018-02-04 09:50] LABS: HCT 36.2 % (39.0-53.0); HGB 12.1 gm/dL (13.0-17.5); MCH 29.5 pg (25.0-35.0); MCHC 33.5 g/dL (31.0-37.0); MCV 88.1 fL (80.0-100.0); Mean Platelet Volume 7.1; Platelet Count 300 k/uL (150-450); RBC 4.11 m/uL (4.30-5.90); RDW 14.8 % (11.5-15.5)
== END | disposition home or self-care (01) ==
LOC: LABWHC1 08:29
PROVIDERS: ATTEND Internal Medicine Interventional Cardiology
DX: I10 Essential (primary) hypertension (principal); I25.10 Atherosclerotic heart disease of native coronary artery without angina pectoris
CPT/HCPCS: 36415; 80048; 85027

== ENCOUNTER 2018-02-17 08:02 | Day surgery (SDC) | payer MEDICARE ==
[~2018-02-17 08:02] MED LIST: ALPRAZolam 0.25 MG TAB PO PRN; ALPRAZolam 0.5 MG TAB PO PRN; ASPIRIN 325 MG TAB PO STA; ATORVASTATIN 80 MG TAB PO STA; NITROGLYCERIN SL TABS 0.4 MG TAB SUBLINGUAL PRN; SODIUM CHLORIDE 0.9% 1,000 ML in EMPTY BAG 1 BAG IV ONE
[2018-02-17 08:35] LABS: Basophils # (A) 0.1 k/uL (0-0.2); Basophils % (A) 1 %; Eosinophils # (A) 0.5 k/uL (0-0.7); Eosinophils % (A) 6 %; HCT 35.5 % (39.0-53.0); Lymphocytes # (A) 1.3 k/uL (1.0-4.8); Lymphocytes % (A) 18 %; MCH 29.7 pg (25.0-35.0); MCHC 33.8 g/dL (31.0-37.0); Mean Platelet Volume 6.7; Monocytes # (A) 0.5 k/uL (0-1.0); Monocytes % (A) 7 %; Neutrophils % (A) 66 %; Platelet Count 262 k/uL (150-450); RBC 4.04 m/uL (4.30-5.90); RDW 14.7 % (11.5-15.5); WBC 7.5 k/uL (3.8-10.6)
[2018-02-17 09:05] LABS: Calcium 9.4 mg/dL (8.4-10.2); Potassium 4.2 mmol/L (3.5-5.1)
[2018-02-17] MEDS: MIDAZOLAM 2 MG/2 ML VIAL IVP ONE ×2 (09:16→09:24)
[2018-02-17] MEDS ORDERED: diphenhydrAMINE 50 MG/ML 1 ML VIAL IVP ONE (09:24)
[2018-02-17] MEDS ORDERED: LIDOCAINE 1% INJ 10MG/ML (10 ML MDV) SQ ONE (09:29)
[2018-02-17] MEDS: NITROGLYCERIN 1000MCG/10ML SYRINGE INTRACORON ONE ×2 (09:36→09:59)
[2018-02-17] MEDS ORDERED: BIVALIRUDIN BOLUS 250 MG/50 ML IV ONE (09:50)
[2018-02-17] MEDS ORDERED: BIVALIRUDIN 250 MG in SODIUM CHLORIDE 0.9% 50 ML IV ONE (09:50)
[2018-02-17] MEDS ORDERED: IOPAMIDOL-370 100ML BTL INJ ONE ×2 (09:53→10:09)
[2018-02-17] MEDS ORDERED: CLOPIDOGREL 75 MG TAB PO ONE (10:09)
[2018-02-17] MEDS ORDERED: RX INFO: IV CONTRAST WAS GIVEN 1 EACH MISC MISCELLANE PRN (10:14)
[2018-02-17] MEDS ORDERED: ZOLPIDEM 5 MG TAB PO PRN (10:14)
[2018-02-17] MEDS ORDERED: ATROPINE SULFATE 0.1 MG/ML 10ML SYRINGE IV PRN (10:14)
[2018-02-17] MEDS ORDERED: MAG HYDROX/AL HYDROX/SIMETH 30 ML CUP PO PRN (10:14)
[2018-02-17] MEDS ORDERED: NITROGLYCERIN SL TABS 0.4 MG TAB SUBLINGUAL PRN (10:14)
--- NOTE | 2018-02-17 11:16 | PTCA ---
PERCUTANEOUSTRANS CORORONARY ANGIOGRAPHY DATE OF SERVICE: 02/17/2018. PROCEDURE: 1. Selective coronary angiography of right coronary artery. 2. PTCA and stenting of circumflex marginal with a drug-eluting stent. PERFORMED BY: Dr. Nia Hay. ANESTHESIA: Moderate conscious sedation time was 40 minutes. Patient was administered Versed and Benadryl and his oxygen saturation and hemodynamics were watched closely. CLINICAL INFORMATION: Mr. Anibal Oviedo is an 82-year-old gentleman with history of hypertension, hyperlipidemia, family history of CAD who presented with a non-ST elevation [place] and underwent stenting of a very complex calcified proximal RCA performed on 01/24/2018. He presented. He was advised staged intervention of circumflex and brought in for the procedure electively. Risks, benefits, options and rationale were explained. PROCEDURE NOTE: Under local anesthesia and strict aseptic precautions, a 6-Bulgarian introducer was placed in the right femoral artery. Using a standard right diagnostic right guide in guide catheter of Rusty type, I performed selective coronary angiography of the right coronary artery and noted that the RCA that was stented on 01/24/2018 was widely patent. I then recommended intervention of circumflex marginal that was performed in the same setting. I used initially a standard left guide and subsequently switched over to a XB without success and finally used a Q-curved 3.5 left guide catheter. With this I was able to cannulate the left coronary artery. I had difficulty getting access into the circumflex. With a run-through wire and after pulling the guide catheter back, I was able to selectively advance the wire into the circumflex marginal. Wire was kept distally. Without predilatation, I performed stenting of circumflex marginal with a 2.5 caliber 8 mm long Xience stent at 12 atmospheres. Patient had mild chest discomfort. No EKG changes. Excellent angiographic result without complication was achieved. The sheath was taken out and Angio-Seal device used to secure hemostasis and was sent to the room in a stable condition. Patient received Angiomax bolus and infusion as per protocol and he was already on aspirin and Plavix. He received an additional 150 mg of Plavix. Excellent angiographic result without complication was achieved and results were discussed with the patient and family and I expect he will be discharged tomorrow if he remains stable. The left anterior descending does not have any significant disease, but there is moderate calcification noted. MMODL / IJN: [id number] /
--- NOTE | 2018-02-17 11:22 | LTR ---
DATE OF SERVICE: 02/17/2018 RE: Anibal Oviedo. Dear Dr. Cortez; Thank you for the opportunity to participate in the care of Mr. Oviedo. I am pleased to report to you that his previous stented RCA was widely patent. I performed stenting of his circumflex marginal with excellent angiographic result. I expect that he will be discharged tomorrow if he remains stable. Thank you for your referral and please do call for questions. With kindest regards, Sincerely yours, MD ALEXEY Morgan / SHANTE: [id number] /
[2018-02-17 13:19] VITALS: BMI 63.8
[2018-02-17] MEDS: SODIUM CHLORIDE 0.9% 1,000 ML IV SCH (14:15)
[2018-02-17] MEDS: METOPROLOL TARTRATE 12.5 MG TAB PO SCH (20:59)
[2018-02-17] MEDS ORDERED: GABAPENTIN 100 MG CAP PO SCH (21:00)
[2018-02-17] MEDS ORDERED: ATORVASTATIN 80 MG TAB PO SCH (21:00)
[2018-02-17] MEDS: hydrALAZINE HCL 50 MG TAB PO SCH (21:00)
[2018-02-18] MEDS: SODIUM CHLORIDE 0.9% 1,000 ML IV SCH (01:47)
[2018-02-18 08:11] LABS: Basophils % (A) 1 %; Eosinophils # (A) 0.4 k/uL (0-0.7); Eosinophils % (A) 6 %; HCT 32.1 % (39.0-53.0); HGB 10.7 gm/dL (13.0-17.5); Lymphocytes % (A) 16 %; MCH 29.5 pg (25.0-35.0); MCHC 33.5 g/dL (31.0-37.0); MCV 88.2 fL (80.0-100.0); Mean Platelet Volume 7.2; Monocytes # (A) 0.5 k/uL (0-1.0); Monocytes % (A) 7 %; Neutrophils # (A) 4.3 k/uL (1.3-7.7); Neutrophils % (A) 68 %; Platelet Count 190 k/uL (150-450); RBC 3.63 m/uL (4.30-5.90); RDW 14.5 % (11.5-15.5); WBC 6.3 k/uL (3.8-10.6)
[2018-02-18 08:26] LABS: Calcium 8.7 mg/dL (8.4-10.2); Potassium 4.8 mmol/L (3.5-5.1)
[2018-02-18] MEDS ORDERED: CLOPIDOGREL 75 MG TAB PO SCH (09:00)
[2018-02-18] MEDS ORDERED: CALCIUM POLYCARBOPHIL 625 MG TAB PO SCH (09:00)
[2018-02-18] MEDS ORDERED: ASPIRIN 81 MG PO SCH (09:00)
[2018-02-18 11:27] VITALS: BP 144/78; PULSE 68; RESP 18; TEMP 97.4
[2018-02-18] MEDS: hydrALAZINE HCL 50 MG TAB PO SCH (11:28)
[2018-02-18] MEDS: METOPROLOL TARTRATE 12.5 MG TAB PO SCH (11:29)
--- NOTE | 2018-02-18 13:58 | P.DS ---
Providers Attending physician: Patrick Hay Consults: 02/17/18 10:14 Consult Physician Routine Consulting Provider: [facility] Consult Reason/Comments: Post Interventional patient Do you want consulting provider notified?: Already Contacted Primary care physician: [facility] Course: Mr. Oviedo was brought to the hospital for an elective staged intervention of the circumflex artery. The procedure was performed yesterday per Dr. Hay via right femoral artery. Selective angiography was also performed of right coronary system revealing patent stent that was placed 01/24/2018. One stent was plaved with excellent angiographic results without complication. Right groin is clean, dry and intact with no evidence of hematoma. Laboratory data and repeat EKG's reviewed prior to discharge were unremarkable. There are no new prescriptions needed. He will go home today and follow-up with Dr. Hay in 1 week. Appointment has been made prior to discharge. He has been instructed to resume his plavix, aspirin, lopressor, hydralazine and atorvastatin as previously ordered. Patient Condition at Discharge: Stable Plan - Discharge Summary Discharge Rx Participant: No New Discharge Prescriptions: Continue Calcium Polycarbophil [Fibercon] 625 mg PO Q72H Gabapentin [Neurontin] 200 mg PO HS Aspirin 81 mg PO DAILY chew Atorvastatin [Lipitor] 80 mg PO HS #30 tab Nitroglycerin Sl Tabs [Nitrostat] 0.4 mg SUBLINGUAL Q5M PRN #25 tab PRN Reason: Chest Pain Metoprolol Tartrate [Lopressor] 12.5 mg PO QAM Clopidogrel [Plavix] 75 mg PO QAM hydrALAZINE HCL 50 mg PO BID Discharge Medication List Calcium Polycarbophil [Fibercon] 625 mg PO Q72H 03/21/14 [History] Gabapentin [Neurontin] 200 mg PO HS 01/22/18 [History] Aspirin 81 mg PO DAILY chew 01/25/18 [Rx] Atorvastatin [Lipitor] 80 mg PO HS #30 tab 01/25/18 [Rx] Nitroglycerin Sl Tabs [Nitrostat] 0.4 mg SUBLINGUAL Q5M PRN #25 tab 01/25/18 [Rx ] Clopidogrel [Plavix] 75 mg PO QAM 02/11/18 [History] Metoprolol Tartrate [Lopressor] 12.5 mg PO QAM 02/11/18 [History] hydrALAZINE HCL 50 mg PO BID 02/11/18 [History] Follow up Appointment(s)/Referral(s): Patrick Hay MD [STAFF PHYSICIAN] - 02/24/18 1:30 pm (Friday) Patient Instructions/Handouts: *[facility] - After Heart Catheterization - Fabric Worker Instructions, Heart Healthy Diet (DC) Discharge Disposition: HOME SELF-CARE
== END 2018-02-18 12:03 | disposition home or self-care (01) ==
LOC: CATHCVL 08:02 → 6SEL 10:07 → CATHCVL 02-18 12:03
PROVIDERS: ATTEND Internal Medicine Interventional Cardiology
DX: I25.10 Atherosclerotic heart disease of native coronary artery without angina pectoris (principal); I25.84 Coronary atherosclerosis due to calcified coronary lesion; I10 Essential (primary) hypertension; Z87.891 Personal history of nicotine dependence; Z95.5 Presence of coronary angioplasty implant and graft; E78.00 Pure hypercholesterolemia, unspecified; E78.5 Hyperlipidemia, unspecified; Z82.49 Family history of ischemic heart disease and other diseases of the circulatory system; Z79.02 Long term (current) use of antithrombotics/antiplatelets; Z79.82 Long term (current) use of aspirin; Z79.899 Other long term (current) drug therapy
CPT/HCPCS: 80048 ×2; 85025 ×2; C9600; C1760; C1887 ×4; C1769 ×3; C1894; C1874; J2250; J1200; J0583; J2001; Q9967

== ENCOUNTER → 2019-07-12 | Outpatient (CLI) | payer MEDICARE ==
[2019-07-12 14:41] LABS: HCT 36.3 % (39.0-53.0); HGB 12.2 gm/dL (13.0-17.5); MCH 27.9 pg (25.0-35.0); MCHC 33.7 g/dL (31.0-37.0); MCV 82.7 fL (80.0-100.0); Mean Platelet Volume 6.1; Platelet Count 233 k/uL (150-450); RBC 4.39 m/uL (4.30-5.90); RDW 15.5 % (11.5-15.5); WBC 7.3 k/uL (3.8-10.6)
[2019-07-12 14:47] LABS: Magnesium 2.1 mg/dL (1.6-2.3); Potassium 4.6 mmol/L (3.5-5.1)
== END | disposition home or self-care (01) ==
LOC: LABPAT 13:07
PROVIDERS: ATTEND Internal Medicine Interventional Cardiology
DX: Z01.812 Encounter for preprocedural laboratory examination (principal); I25.10 Atherosclerotic heart disease of native coronary artery without angina pectoris; E78.00 Pure hypercholesterolemia, unspecified
CPT/HCPCS: 36415; 80051; 82565; 82947; 83735; 84520; 85027

== ENCOUNTER 2019-07-13 05:59 | Day surgery (SDC) | payer MEDICARE ==
[2019-07-13] MEDS ORDERED: LIDOCAINE 1% INJ 10MG/ML (20 ML MDV) ONE (07:03)
[2019-07-13] MEDS ORDERED: MIDAZOLAM 2 MG/2 ML VIAL IV ONE (07:30)
[2019-07-13] MEDS ORDERED: LIDOCAINE 1% INJ 10MG/ML (20 ML MDV) SQ ONE (07:35)
[2019-07-13] MEDS: NITROGLYCERIN 1000MCG/10ML SYRINGE INTRACORON ONE ×2 (07:43→08:26)
[2019-07-13] MEDS ORDERED: BIVALIRUDIN BOLUS 250 MG/50 ML IV ONE (07:58)
[2019-07-13] MEDS ORDERED: BIVALIRUDIN 250 MG in SODIUM CHLORIDE 0.9% 50 ML IV ONE (07:59)
[2019-07-13] MEDS ORDERED: IOPAMIDOL-370 100ML BTL INJ ONE ×2 (08:04→08:30)
[2019-07-13] MEDS ORDERED: CLOPIDOGREL 75 MG TAB ONE (08:31)
[2019-07-13] MEDS ORDERED: CLOPIDOGREL 75 MG TAB PO ONE (08:38)
[2019-07-13] MEDS ORDERED: NITROGLYCERIN SL TABS 0.4 MG TAB SUBLINGUAL PRN ×2 (08:44→08:46)
[2019-07-13] MEDS ORDERED: RX INFO: IV CONTRAST WAS GIVEN 1 EACH MISC MISCELLANE PRN (08:44)
[2019-07-13] MEDS ORDERED: ZOLPIDEM 5 MG TAB PO PRN (08:44)
[2019-07-13] MEDS ORDERED: MAG HYDROX/AL HYDROX/SIMETH 30 ML CUP PO PRN (08:44)
[2019-07-13] MEDS ORDERED: ATROPINE SULFATE 0.1 MG/ML 10ML SYRINGE IV PRN (08:44)
[2019-07-13] MEDS ORDERED: SODIUM CHLORIDE 0.9% 1,000 ML IV SCH (08:45)
[2019-07-13] MEDS ORDERED: CLOPIDOGREL 75 MG TAB PO SCH (09:00)
[2019-07-13] MEDS ORDERED: CALCIUM POLYCARBOPHIL 625 MG TAB PO SCH (09:00)
[2019-07-13] MEDS ORDERED: ASPIRIN 81 MG PO SCH (09:00)
[2019-07-13] MEDS: ASPIRIN 81 MG PO SCH (09:01)
[2019-07-13] MEDS: METOPROLOL TARTRATE 25 MG TAB PO SCH (09:31)
[2019-07-13] MEDS: hydrALAZINE HCL 25 MG TAB PO SCH (09:31)
--- NOTE | 2019-07-13 09:44 | CC ---
CARDIAC CATHETERIZATION REPORT DATE OF SERVICE: 07/13/2019 PROCEDURE: 1. Left heart catheterization and coronary angiography. 2. PTCA and stenting of a restenotic proximal RCA lesion with a drug-eluting stent. PERFORMED BY: Dr. Nia Hay. Moderate conscious sedation time was 65 minutes. CLINICAL INFORMATION: Mr. Anibal Oviedo is an 84-year-old gentleman with history of known CAD, hypertension and hypercholesterolemia. In the first week of January 2018, I performed stenting of a heavily calcified proximal RCA lesion. There was a distal RCA lesion of 50% which was not intervened. A few weeks later I performed stenting of a circumflex marginal and the RCA was patent at that time. He has been doing fairly well but he came into the office with symptoms strongly suggestive of unstable angina yesterday and I advised prompt cardiac catheterization. Rationale, risks, benefits, options were explained to the patient in great detail. PROCEDURE NOTE: Under local anesthesia and strict aseptic precautions, a 6-Lux[place]bourgish introducer was placed in the right femoral artery. There was heavy calcification in the femoral system. I had to use a dilator. Patient's previous intervention was attempted from correction from the right radial, but because of tortuosity, we decided to pursue all his procedures from the right femoral approach. Using standard Rusty catheters, I performed selective coronary angiography of the coronary arteries and a pigtail catheter was used to check LV pressures but LV gram was not performed. Because of a critical lesion in the proximal RCA of 95% to 99%, which was within the previously stented area and it was a restenotic lesion, I recommended intervention. This was a heavily calcified vessel. Circumflex vessel was patent. LAD had no significant disease. LV pressures were normal. I proceeded to perform PCI in the same setting. CARDIAC CATHETERIZATION FINDINGS: The left ventricular end-diastolic pressure was 13 mmHg without any gradient across the aortic valve. CORONARY ANGIOGRAPHY FINDINGS: RIGHT CORONARY ARTERY: Technically a dominant vessel that was stented on January 24, 2018, now has a restenotic lesion of 99% with somewhat sluggish flow and distally there is a 50% lesion and the vessel bifurcates into PDA and PLV. The PDA has moderate of 40% to 50% lesion and PLV also has a 50% lesion. The distal RCA has a 50% lesion. These lesions are unchanged, but the proximal RCA restenotic lesion is quite significant. LEFT MAIN CORONARY ARTERY: Short patent vessel that immediately bifurcates into LAD and circumflex. No significant disease. LEFT ANTERIOR DESCENDING CORONARY ARTERY: Good caliber vessel, gives off septal and diagonal branches, has about a 30% to 35% narrowing, runs all the way to the apex supplies a sizable amount of myocardium. There are several good fair-sized diagonal and septal branches which are free of significant disease. LEFT POSTERIOR CIRCUMFLEX CORONARY ARTERY: Technically nondominant vessel gives off a good-sized obtuse marginal that was stented and now is widely patent with good flow. There are 2 other small obtuse marginal branches and distal posterolateral branch, all of which have minor irregularities of no more than 30% to 35%. FINAL IMPRESSION: This patient has no significant gradient across the aortic valve. Left ventricular end- diastolic pressure was 13 mmHg. He has a right dominant system with a restenotic lesion within the previously stented RCA of 95% and distally there is a 50% RCA lesion as well as PDA and PLV lesions. Circumflex that was stented in January of 2018 is widely patent with no more than 30% to 35% narrowing in other branches. Left anterior descending artery is free of significant disease with moderate calcification. RECOMMENDATIONS: I recommended PCI of RCA that was performed in the same setting. PCI PROCEDURE DETAILS: Angiomax bolus and infusion was given and 300 mg of Plavix was given additionally. Patient was already on aspirin and Plavix. I used a [place] guide catheter to cannulate the left coronary artery and a Whisper wire to cross the lesion. Predilatation was performed with a 2.5 caliber 12 mm NC Trek balloon at 12 atmospheres. I then tried to advance the 3.5 caliber 15 mm stent but I had a lot of difficulty because the stent was hitting the existing stent and I could not advance it further. I placed an additional run-through wire, even with this I had difficulty. I then used the run-through and whisper combination and I took the 15 mm 3.5 caliber Xience stent over the whisper wire. With this I was able to advance the stent beyond the previous stent and then pulled back and apposed it. This stent was positioned slightly proximal to the previous stent and slightly distal to it, but good position was achieved. I then deployed the 15 mm long 3.5 caliber Xience stent at 13 atmospheres. Patient had mild chest discomfort and significant inferior ST elevations. Excellent angiographic result was achieved without complication. The distal branches of the RCA continued to have about a 50% lesion and I do not believe this is a critical stenosis. At the site of a restenotic lesion, there is an excellent angiographic result without complication. Final images were obtained in CHUCK and RASMUSSEN projection. Patient received additional 300 mg of Plavix. The sheath was taken out and Angio-Seal device used to secure hemostasis and he was sent to the room in a stable condition. Excellent angiographic result without complication was achieved and results were discussed with the patient as well as his and images were reviewed. I expect he will be discharged tomorrow if he remains stable. MMODL / IJN: [id number] /
[2019-07-13 11:27] VITALS: BMI 29.0
[2019-07-13] MEDS ORDERED: hydrALAZINE HCL 50 MG TAB PO SCH (21:00)
[2019-07-13] MEDS ORDERED: GABAPENTIN 100 MG CAP PO SCH (21:00)
[2019-07-14 06:36] LABS: Basophils # (A) 0.1 k/uL (0-0.2); Basophils % (A) 1 %; Eosinophils # (A) 0.2 k/uL (0-0.7); Eosinophils % (A) 3 %; HCT 34.5 % (39.0-53.0); HGB 11.3 gm/dL (13.0-17.5); Lymphocytes # (A) 1.1 k/uL (1.0-4.8); Lymphocytes % (A) 17 %; MCH 27.1 pg (25.0-35.0); MCHC 32.6 g/dL (31.0-37.0); MCV 83.2 fL (80.0-100.0); Mean Platelet Volume 6.9; Monocytes # (A) 0.5 k/uL (0-1.0); Monocytes % (A) 8 %; Neutrophils # (A) 4.5 k/uL (1.3-7.7); Neutrophils % (A) 69 %; Platelet Count 189 k/uL (150-450); RBC 4.15 m/uL (4.30-5.90); RDW 15.9 % (11.5-15.5); WBC 6.5 k/uL (3.8-10.6)
[2019-07-14 06:49] LABS: Potassium 4.4 mmol/L (3.5-5.1)
[2019-07-14 09:05] VITALS: BP 171/84; PULSE 85; RESP 18; TEMP 97.9
[2019-07-14] MEDS: CLOPIDOGREL 75 MG TAB PO SCH ×2 (09:05→09:08)
[2019-07-14] MEDS: ASPIRIN 81 MG PO SCH (09:05)
[2019-07-14] MEDS: METOPROLOL TARTRATE 25 MG TAB PO SCH (09:06)
[2019-07-14] MEDS: hydrALAZINE HCL 25 MG TAB PO SCH (09:06)
[2019-07-14] MEDS ORDERED: hydrALAZINE HCL 25 MG TAB PO STA (09:38)
[2019-07-14] MEDS ORDERED: amLODIPine 5 MG TAB PO SCH (11:30)
--- NOTE | 2019-07-14 11:54 | DS ---
DISCHARGE SUMMARY DATE OF ADMISSION: 07/13/2019. DATE OF DISCHARGE: 07/14/2019. DIAGNOSES: 1. Unstable angina. 2. Hypertension. PROCEDURES PERFORMED: Left heart catheterization, coronary angiography and PTCA and stenting of a restenotic lesion in the proximal RCA with a drug-eluting stent. Mr. Oviedo was admitted because of unstable angina. Cardiac cath from right femoral approach revealed a 95% proximal RCA lesion which was stented with a 3.5 caliber 15 mm long Xience stent with excellent result. His circumflex that was stented again in January of last year was widely patent. The RCA was also stented in January of last year but now was restenosed and we addressed this time with a drug-eluting stent. His LAD does not have any significant disease. Postprocedure course was uneventful. Blood pressure was slightly elevated. I am adding amlodipine 5 mg at bedtime and to continue hydralazine at 50 mg t.i.d., continue dual antiplatelet therapy and statins. Discharge instructions regarding activity, diet and medications were given and patient will be seen by me on Friday at 4 p.m. Physical exam revealed blood pressure 150/70, pulse rate is about 70. EKG revealed right bundle with repolarization changes. No acute findings. Labs are good. No JVD or carotid bruit. S1, S2 with a short systolic murmur audible at the base. Second heart sound is preserved. Lungs are clear. Abdomen and lower extremity exam is unchanged. Right groin is clean and dry with a good pulse. Patient will be discharged today and I will see him on Friday. MMODL / IJN: [id number] /
[2019-07-14] MEDS ORDERED: hydrALAZINE HCL 50 MG TAB PO SCH (16:00)
[2019-07-14] MEDS ORDERED: ATORVASTATIN 80 MG TAB PO SCH (21:00)
== END 2019-07-14 12:01 | disposition home or self-care (01) ==
LOC: CATHCVL 05:59 → 3SCARD 08:44 → CATHCVL 07-14 12:01
PROVIDERS: ATTEND Internal Medicine Interventional Cardiology
DX: T82.855A Stenosis of coronary artery stent, initial encounter (principal); I25.110 Atherosclerotic heart disease of native coronary artery with unstable angina pectoris; I25.84 Coronary atherosclerosis due to calcified coronary lesion; I70.201 Unspecified atherosclerosis of native arteries of extremities, right leg; I77.1 Stricture of artery; I10 Essential (primary) hypertension; E78.5 Hyperlipidemia, unspecified; E78.00 Pure hypercholesterolemia, unspecified; Z95.5 Presence of coronary angioplasty implant and graft; Z79.02 Long term (current) use of antithrombotics/antiplatelets; Z79.82 Long term (current) use of aspirin; Z79.899 Other long term (current) drug therapy
CPT/HCPCS: 93458; 80048; 85025; C9600; C1760; C1769 ×4; C1887; C1725; C1894; C1874; J2250; J2001; J0583; Q9967

== ENCOUNTER 2020-09-23 13:58 | Observation (INO) | payer MEDICARE ==
[2020-09-23] MEDS ORDERED: ASPIRIN 81 MG PO STA (14:03)
[2020-09-23] MEDS ORDERED: NITROGLYCERIN SL TABS 0.4 MG TAB SUBLINGUAL STA (14:03)
--- NOTE | 2020-09-23 14:20 | ED ---
Chest Pain HPI - General Source: patient, family Mode of arrival: wheelchair <RupertAngela moreno - Last Filed: 09/23/20 16:08> <Sameer Bennett Lluvia - Last Filed: 09/23/20 16:23> - General Chief Complaint: Chest Pain Stated Complaint: Chest Tightness Time Seen by Provider: 09/23/20 14:02 - History of Present Illness Initial Comments: 85-year-old male with history of hypertension and known coronary artery disease with 2 stents placd by KIT Wallace who is currently on plavix presenting to the ER today for cc of chest tightness x 2 hours. She states that around 12 PM he developed chest tightness he states he was watching a movie at this time. Patient states is also been belching. Patient denies any radiation of the pain he denies any back pain jaw pain and arm pain. He states is very slight shortness of breath he denies any leg swelling he denies any symptoms prior to today. Patient denies any ripping tearing pain sharp pains pain deep inspiration. Patient denies any history of active cancer or history of DVT/pulmonary embolism. Patient denies any history of thoracic abdominal aneurysm. Patient states that when the pressure persisted he presented to the ER for further evaluation. He denies taking any nitroglycerin prior to arrival although he is prescribed as when necessary. Patient states he did take 2 Tylenol. Pt BP elevated on arrival, repeat on history taking once in room 169/91 HR 98. (Angela Weeks) - Related Data Home Medications Medication Instructions Recorded Confirmed Calcium Polycarbophil [Fibercon] 625 mg PO Q72H 03/21/14 09/23/20 Gabapentin [Neurontin] 200 mg PO HS 01/22/18 09/23/20 Clopidogrel [Plavix] 75 mg PO QAM 02/11/18 09/23/20 Atorvastatin [Lipitor] 40 mg PO HS 09/23/20 09/23/20 Metoprolol Succinate [Toprol XL] 12.5 mg PO HS 09/23/20 09/23/20 amLODIPine [Norvasc] 5 mg PO DAILY 09/23/20 09/23/20 hydrALAZINE HCL [Apresoline] 50 mg PO BID 09/23/20 09/23/20 Previous Rx's Medication Instructions Recorded Aspirin 81 mg PO DAILY chew 01/25/18 Nitroglycerin Sl Tabs [Nitrostat] 0.4 mg SUBLINGUAL Q5M PRN #25 tab 01/25/18 Allergies Allergy/AdvReac Type Severity Reaction Status Date / Time No Known Allergies Allergy Verified 09/23/20 16:02 Review of Systems ROS Other: All systems not noted in ROS Statement are negative. <Angela Weeks - Last Filed: 09/23/20 16:08> ROS Other: All systems not noted in ROS Statement are negative. <SabrinaSameer Lluvia - Last Filed: 09/23/20 16:23> ROS Statement: Those systems with pertinent positive or pertinent negative responses have been documented in the HPI. Past Medical History Past Medical History: Coronary Artery Disease (CAD), Cancer, Chest Pain / Angina, GERD/Reflux, Hearing Disorder / Deafness, Hyperlipidemia, Hypertension, Osteoarthritis (OA) Additional Past Medical History / Comment(s): Hx bladder CA. Dr watching blood sugars, borderline per pt. Polio at age 16. Ringing in ears. Chest discomfort for past week, some shortness of breath. History of Any Multi-Drug Resistant Organisms: None Reported Past Surgical History: Back Surgery, Bladder Surgery, Heart Catheterization With Stent, Hernia Repair Additional Past Surgical History / Comment(s): stomach ulcer surgery. CATARACT SURGERY. PTCA W/ 2 Stents 01/2018. bladder cancer exc; back surger (laminectomy apr 2016) Past Anesthesia/Blood Transfusion Reactions: No Reported Reaction Date of Last Stent Placement:: 01/24/2018 Past Psychological History: No Psychological Hx Reported Smoking Status: Former smoker Past Alcohol Use History: Daily Past Drug Use History: None Reported - Past Family History Father Family Medical History: Cancer Additional Family Medical History / Comment(s): BLADDER CANCER Mother Family Medical History: Coronary Artery Disease (CAD), Diabetes Mellitus Additional Family Medical History / Comment(s): had open heart surgery Brother(s) Family Medical History: Cancer, Coronary Artery Disease (CAD), Deep Vein Thrombosis (DVT) Additional Family Medical History / Comment(s): Lung CA; another had Hodgkin's Daughter(s) Family Medical History: No Reported History Son(s) Family Medical History: No Reported History <Angela Weeks - Last Filed: 09/23/20 16:08> General Exam <Angela Weeks - Last Filed: 09/23/20 16:08> - General Exam Comments Initial Comments: General: The patient is awake and alert, in no distress,he is not diaphoretic negative Arzate sign Eye: Pupils are equal, round and reactive to light, extra-ocular movements are intact. No nystagmus. There is normal conjunctiva bilaterally. No signs of icterus. Ears, nose, mouth and throat: There are moist mucous membranes and no oral lesions. Neck: The neck is supple, there is no tenderness or JVD. Cardiovascular: There is a regular rate and rhythm. No murmur, rub or gallop is appreciated. Respiratory: Lungs are clear to auscultation, respirations are non-labored, breath sounds are equal. No wheezes, stridor, rales, or rhonchi. Gastrointestinal: Soft, non-distended, non-tender abdomen without masses or organomegaly noted. There is no rebound or guarding present. Musculoskeletal: Normal ROM, no tenderness. Strength 5/5. Sensation intact. Radial and DP pulses equal bilaterally 2+. Neurological: A&O x 3. CN II-XII intact, There are no obvious motor or sensory deficits. Coordination appears grossly intact. Speech is normal. Skin: Skin is warm and dry and no rashes or lesions are noted. No LE edema. No calf pain. Psychiatric: Cooperative, appropriate mood & affect, normal judgment. (Angela Weeks) Course Vital Signs 09/23/20 09/23/20 09/23/20 13:59 14:30 14:54 Temperature 98.5 F 97.8 F 97.9 F Pulse Rate 118 H 99 98 Respiratory 18 18 16 Rate Blood Pressure 179/137 168/91 134/91 O2 Sat by Pulse 98 96 99 Oximetry 09/23/20 15:28 Temperature 97.9 F Pulse Rate 92 Respiratory 16 Rate Blood Pressure 132/89 O2 Sat by Pulse 98 Oximetry Chest Pain MDM <Angela Weeks - Last Filed: 09/23/20 16:08> <Sameer Bennett - Last Filed: 09/23/20 16:23> - MDM 85yo male iwth known CAD with stents on plavix presenting for cc of chest pressure x 2hours. Initial EKG reviewed with attending Dr. Ovalle. Pain improved with 2 SL nitroglycerin/paste and morphine. Pt initial troponinnegative. Chest x-ray clear. Patient states pain is nearly resolved with great improvement. Patient initiated on heparin given how classic pain appeared with known history of CAD. Dr. Bennett became attending at 3PM, he is agreeable to admission and care plan- as well as initiation of heparin. Cardiology on consultation. PRN EKGs ordered. Patient agreeable to admission with anticoagulation therapy. (Angela Weeks) I discussed case with Dr. Ghosh will admit. Cardiology placed on consult. (Sameer Bennett) Disposition Is patient prescribed a controlled substance at d/c from ED?: No Time of Disposition: 15:59 Decision to Admit Reason: Admit from EC Decision Date: 09/23/20 Decision Time: 15:59 <Angela Weeks - Last Filed: 09/23/20 16:08> <Sameer Bennett - Last Filed: 09/23/20 16:23> Clinical Impression: Chest pressure, Unstable angina Disposition: ADMITTED IP TO THIS HOSP Condition: Stable
[2020-09-23 14:52] LABS: Basophils # (A) 0.1 k/uL (0-0.2); Basophils % (A) 1 %; Eosinophils # (A) 0.1 k/uL (0-0.7); Eosinophils % (A) 1 %; HCT 33.4 % (39.0-53.0); HGB 11.4 gm/dL (13.0-17.5); Lymphocytes # (A) 1.6 k/uL (1.0-4.8); Lymphocytes % (A) 12 %; MCH 25.6 pg (25.0-35.0); MCV 75.4 fL (80.0-100.0); Microcytosis Slight; Monocytes # (A) 0.8 k/uL (0-1.0); Monocytes % (A) 6 %; Neutrophils # (A) 10.6 k/uL (1.3-7.7); Neutrophils % (A) 79 %; Platelet Count 309 k/uL (150-450); RBC 4.44 m/uL (4.30-5.90); RDW 15.9 % (11.5-15.5); WBC 13.4 k/uL (3.8-10.6)
[2020-09-23 15:01] LABS: INR 0.9 (<1.2); Partial Thromboplastin Time 26.7 sec (22.0-30.0); Prothrombin Time 9.9 sec (9.0-12.0)
[2020-09-23] MEDS ORDERED: MORPHINE SULFATE 2 MG/ML SYRINGE IVP STA (15:01)
[2020-09-23] MEDS ORDERED: NITROGLYCERIN OINT 1 INCH/GM PACKET TOPICAL STA (15:01)
[2020-09-23 15:03] LABS: Albumin 4.3 g/dL (3.5-5.0); Calcium 9.6 mg/dL (8.4-10.2); Potassium 3.8 mmol/L (3.5-5.1); Total Bilirubin 0.4 mg/dL (0.2-1.3); Total Protein 7.6 g/dL (6.3-8.2)
[2020-09-23] MEDS ORDERED: HEPARIN SODIUM,PORCINE 5,000 UNIT/ML 1 ML VIAL IV ONE (15:11)
[2020-09-23] MEDS ORDERED: HEPARIN SODIUM,PORCINE 5,000 UNIT/ML 1 ML VIAL IV PRN (15:11)
[2020-09-23] MEDS: SODIUM CHLORIDE 0.9% 1,000 ML IV SCH (15:14)
[2020-09-23] MEDS ORDERED: HEPARIN SOD,PORK IN 0.45% NACL 25,000 UNIT in 0.45% NACL 1 250ML.BAG IV SCH (15:15)
--- NOTE | 2020-09-23 15:32 | XR ---
EXAMINATION TYPE: XR chest 2V DATE OF EXAM: 09/23/2020 COMPARISON: 01/22/2018 HISTORY: Chest pain TECHNIQUE: FINDINGS: There is no heart failure nor confluent pneumonic infiltrate. Costophrenic angles are fairl y clear. There are no hilar masses. There are chest leads. Bony thorax is intact. There is mild spurr ing in the thoracic spine. There is slight coarsening of the lung markings at the lung bases. IMPRESSION: Mild pulmonary fibrotic changes. No acute lung disease. No change. Normal heart.
[2020-09-23] MEDS ORDERED: NITROGLYCERIN SL TABS 0.4 MG TAB SUBLINGUAL PRN (15:57)
[2020-09-23] MEDS ORDERED: FAMOTIDINE 20 MG/2 ML VIAL IV STA (16:58)
[2020-09-24] MEDS ORDERED: NITROGLYCERIN SL TABS 0.4 MG TAB SUBLINGUAL PRN (07:17)
[2020-09-24 07:49] LABS: Basophils # (A) 0.1 k/uL (0-0.2); Basophils % (A) 1 %; Eosinophils % (A) 0 %; Lymphocytes # (A) 1.6 k/uL (1.0-4.8); Lymphocytes % (A) 16 %; MCH 26.2 pg (25.0-35.0); MCHC 34.6 g/dL (31.0-37.0); MCV 75.8 fL (80.0-100.0); Mean Platelet Volume 7.6; Microcytosis Slight; Monocytes # (A) 1.1 k/uL (0-1.0); Monocytes % (A) 11 %; Neutrophils # (A) 6.8 k/uL (1.3-7.7); Neutrophils % (A) 70 %; Platelet Count 242 k/uL (150-450); RBC 3.69 m/uL (4.30-5.90); WBC 9.7 k/uL (3.8-10.6)
[2020-09-24 08:04] LABS: HGB 9.7 gm/dL (13.0-17.5)
--- NOTE | 2020-09-24 08:47 | P.CRDCN ---
History of Present Illness Consult date: 09/24/20 Chief complaint: Chest pain History of present illness: This is a very pleasant 85-year-old gentleman who sees Dr. Hay in the office are regular basis with history of coronary artery disease and prior stenting of the RCA and LCx as well as hypertension and dyslipidemia presented to the emergency room complaining of chest discomfort. He was in his usual state of health until yesterday when he was sitting at home watching TV and started exp eriencing discomfort in the chest. He described the discomfort in the mid of the chest as a pressure/tightness without any radiation to the arms or neck or shoulders. No associated symptoms of shortness of breath or dizziness or lightheadedness or sweating or syncope. The discomfort lasted for about half an hour. He states now he does have very mild discomfort about 1/10 in intensity. No fever or chills. The EKG showed sinus rhythm with RBBB. The cardiac enzymes were checked and came in to be unremarkable. The rest of the workup came in to be unremarkable. At this point I'm going to continue the current medical regimen and I'm going to add a small dose of oral nitrates with isosorbide mononitrate 30 mg by mouth daily. We will continue following up with the patient. Past Medical History Past Medical History: Coronary Artery Disease (CAD), Cancer, Chest Pain / Angina, GERD/Reflux, Hearing Disorder / Deafness, Hyperlipidemia, Hypertension, Osteoarthritis (OA) Additional Past Medical History / Comment(s): Hx bladder CA. Dr watching blood sugars, borderline per pt. Polio at age 16. Ringing in ears. Chest discomfort for past week, some shortness of breath. History of Any Multi-Drug Resistant Organisms: None Reported Past Surgical History: Back Surgery, Bladder Surgery, Heart Catheterization With Stent, Hernia Repair Additional Past Surgical History / Comment(s): stomach ulcer surgery. CATARACT SURGERY. PTCA W/ 2 Stents 01/2018. bladder cancer exc; back surger (laminectomy apr 2016) Past Anesthesia/Blood Transfusion Reactions: No Reported Reaction Date of Last Stent Placement:: 01/24/2018 Past Psychological History: No Psychological Hx Reported Smoking Status: Former smoker Past Alcohol Use History: Daily Additional Past Alcohol Use History / Comment(s): QUIT SMOKING 1984, STARTED SMOKING 1946, 2 ppd est. 10 drinks per wk avg est. Past Drug Use History: None Reported - Past Family History Father Family Medical History: Cancer Additional Family Medical History / Comment(s): BLADDER CANCER Mother Family Medical History: Coronary Artery Disease (CAD), Diabetes Mellitus Additional Family Medical History / Comment(s): had open heart surgery Brother(s) Family Medical History: Cancer, Coronary Artery Disease (CAD), Deep Vein Thrombosis (DVT) Additional Family Medical History / Comment(s): Lung CA; another had Hodgkin's Daughter(s) Family Medical History: No Reported History Son(s) Family Medical History: No Reported History Medications and Allergies Home Medications Medication Instructions Recorded Confirmed Type Calcium Polycarbophil [Fibercon] 625 mg PO Q72H 03/21/14 09/23/20 History Gabapentin [Neurontin] 200 mg PO HS 01/22/18 09/23/20 History Aspirin 81 mg PO DAILY chew 01/25/18 09/23/20 Rx Nitroglycerin Sl Tabs [Nitrostat] 0.4 mg SUBLINGUAL Q5M PRN #25 tab 01/25/18 09/23/20 Rx Clopidogrel [Plavix] 75 mg PO QAM 02/11/18 09/23/20 History Atorvastatin [Lipitor] 40 mg PO HS 09/23/20 09/23/20 History Metoprolol Succinate [Toprol XL] 12.5 mg PO HS 09/23/20 09/23/20 History amLODIPine [Norvasc] 5 mg PO DAILY 09/23/20 09/23/20 History hydrALAZINE HCL [Apresoline] 50 mg PO BID 09/23/20 09/23/20 History Allergies Allergy/AdvReac Type Severity Reaction Status Date / Time No Known Allergies Allergy Verified 09/23/20 16:02 Physical Exam Vitals: Vital Signs Temp Pulse Pulse Resp BP BP Pulse Ox 09/24/20 01:18 98.7 F 69 17 121/68 98 09/23/20 17:45 98.0 F 83 18 106/62 99 09/23/20 17:12 97.9 F 83 16 106/62 99 09/23/20 16:34 98.0 F 93 18 154/86 96 09/23/20 15:28 97.9 F 92 16 132/89 98 09/23/20 14:54 97.9 F 98 16 134/91 99 09/23/20 14:30 97.8 F 99 18 168/91 96 09/23/20 13:59 98.5 F 118 H 18 179/137 98 Intake and Output 09/23/20 09/24/20 09/24/20 22:59 06:59 14:59 Intake Total 105.251 Balance 105.251 Intake: Intake, IV Titration 105.251 Amount Heparin Sod,Pork in 0.45% 105.251 NaCl 25,000 unit In 0.45 % NaCl 1 250ml.bag @ 12 UNITS/KG/HR 9.525 mls/hr IV .Q24H [facility] Rx#: [id number] Other: Weight 79.379 kg - Constitutional General appearance: no acute distress - Respiratory Respiratory: bilateral: CTA - Cardiovascular Rhythm: regular Heart sounds: normal: S1, S2 Results 09/24/20 07:10 09/23/20 14:08 Cardiac Enzymes 09/23/20 09/23/20 09/23/20 Range/Units 14:08 14:08 16:41 AST 33 (17-59) U/L Troponin I <0.012 <0.012 (0.000-0.034) ng/mL 09/23/20 Range/Units 19:30 AST (17-59) U/L Troponin I <0.012 (0.000-0.034) ng/mL Coagulation 09/23/20 09/23/20 09/24/20 Range/Units 14:08 22:03 07:10 PT 9.9 (9.0-12.0) sec APTT 26.7 33.7 H 134.4 H* (22.0-30.0) sec CBC 09/23/20 09/24/20 Range/Units 14:08 07:10 WBC 13.4 H 9.7 (3.8-10.6) k/uL RBC 4.44 3.69 L (4.30-5.90) m/uL Hgb 11.4 L 9.7 L D (13.0-17.5) gm/dL Hct 33.4 L 28.0 L (39.0-53.0) % Plt Count 309 242 (150-450) k/uL Comprehensive Metabolic Panel 09/23/20 Range/Units 14:08 Sodium 137 (137-145) mmol/L Potassium 3.8 (3.5-5.1) mmol/L Chloride 103 (98-107) mmol/L Carbon Dioxide 22 (22-30) mmol/L BUN 29 H (9-20) mg/dL Creatinine 1.31 H (0.66-1.25) mg/dL Glucose 114 H (74-99) mg/dL Calcium 9.6 (8.4-10.2) mg/dL AST 33 (17-59) U/L ALT 19 (4-49) U/L Alkaline Phosphatase 93 (38-126) U/L Total Protein 7.6 (6.3-8.2) g/dL Albumin 4.3 (3.5-5.0) g/dL Current Medications Generic Name Dose Route Start Last Admin Trade Name Freq PRN Reason Stop Dose Admin Amlodipine Besylate 5 mg 09/24/20 09:00 Amlodipine 5 Mg Tab PO DAILY [facility] Aspirin 81 mg 09/24/20 09:00 Aspirin 81 Mg PO DAILY [facility] Atorvastatin Calcium 40 mg 09/24/20 21:00 Atorvastatin 40 Mg Tab PO HS [facility] Calcium Polycarbophil 625 mg 09/24/20 07:30 09/24/20 07:46 Calcium Polycarbophil 625 Mg Tab PO 625 mg Q72H [facility] Administration Clopidogrel Bisulfate 75 mg 09/24/20 09:00 Clopidogrel 75 Mg Tab PO QAM [facility] Gabapentin 200 mg 09/24/20 21:00 Gabapentin 100 Mg Cap PO HS [facility] Heparin Sodium (Porcine) 0 unit 09/23/20 15:11 09/24/20 02:19 Heparin Sodium,Porcine 5,000 Unit/Ml 1 Ml Vial IV 3,969 unit PER PROTOCOL PRN Administration Low PTT Protocol Hydralazine HCl 50 mg 09/24/20 09:00 Hydralazine Hcl 50 Mg Tab PO BID [facility] Sodium Chloride 1,000 mls @ 50 mls/hr 09/23/20 15:15 09/23/20 15:14 Saline 0.9% IV 50 mls/hr .Q20H [facility] Administration Heparin Sodium/Sodium Chloride 250 mls @ 9.525 mls/hr 09/23/20 15:15 09/24/20 02:21 25,000 unit/ Sodium Chloride IV 15 units/kg/hr .Q24H [facility] 11.907 mls/hr Titration Protocol 12 UNITS/KG/HR Isosorbide Mononitrate 30 mg 09/24/20 09:00 Isosorbide Mononitrate Er 30 Mg Tab.Er.24h PO DAILY [facility] Metoprolol Succinate 12.5 mg 09/24/20 21:00 Metoprolol Succinate (Er) 25 Mg Tab.Er.24h PO HS [facility] Nitroglycerin 0.4 mg 09/24/20 07:17 Nitroglycerin Sl Tabs 0.4 Mg Tab SUBLINGUAL Q5M PRN Chest Pain Intake and Output 09/23/20 09/24/20 09/24/20 22:59 06:59 14:59 Intake Total 105.251 Balance 105.251 Intake: Intake, IV Titration 105.251 Amount Heparin Sod,Pork in 0.45% 105.251 NaCl 25,000 unit In 0.45 % NaCl 1 250ml.bag @ 12 UNITS/KG/HR 9.525 mls/hr IV .Q24H [facility] Rx#: [id number] Other: Weight 79.379 kg 09/24/20 07:10 09/23/20 14:08 Assessment and Plan Assessment: Assessment #1 chest discomfort #2 coronary artery disease and prior stenting #3 hypertension #4 dyslipidemia Plan #1 acute coronary event was ruled out #2 add oral nitrates to the current medical regimen #3 follow-up with the patient
[2020-09-24] MEDS ORDERED: ASPIRIN 325 MG TAB PO SCH (09:00)
[2020-09-24] MEDS: amLODIPine 5 MG TAB PO SCH (09:58)
[2020-09-24] MEDS: CLOPIDOGREL 75 MG TAB PO SCH (09:58)
[2020-09-24] MEDS: ASPIRIN 81 MG PO SCH (09:58)
[2020-09-24] MEDS: hydrALAZINE HCL 50 MG TAB PO SCH ×2 (09:59→21:53)
[2020-09-24] MEDS: ISOSORBIDE MONONITRATE ER 30 MG TAB.ER.24H PO SCH (10:02)
[2020-09-24] MEDS ORDERED: PANTOPRAZOLE 40 MG TABLET PO STA (11:08)
[2020-09-24] MEDS: SENNOSIDES-DOCUSATE SODIUM 1 EACH TAB PO SCH (11:54)
[2020-09-24] MEDS: SODIUM CHLORIDE 0.9% 1,000 ML IV SCH (11:55)
[2020-09-24 12:08] LABS: LDL Cholesterol,Calculated 66.2 mg/dL (0.0-131.0); VLDL Calculation 13.8 mg/dL (5.00-40.00)
[2020-09-24 15:00] LABS: % Iron Saturation 5.02 (15.00-50.00)
--- NOTE | 2020-09-24 15:30 | P.HPIM ---
History of Present Illness H&P Date: 09/24/20 This is an 82-year-old male one of Dr. Cortez with a previous medical history significant for hypertension and hypertensive cardiovascular disease with left ventricular hypertrophy, hyperlipidemia, GERD, patient presented to the emergency department at [facility] yesterday with the recurrent chest pain that occurred at rest, patient has been physically active using the bike [employer] bike, 5 minutes 3 times a week however he does not have any chest pain at that time, and chest tightness 1 day prior to admission. He had a heart cath performed on 07/13/2019 for which there is a critical disease in the stented RCA 95%, and there is a distal 50% RCA lesion, and a PDA PLB lesion. Stented circumflex January 2018 patent no more than 30-35% narrowing of anterior descending artery is free of disease with moderate calcification In the emergency room hemoglobin noted to be 11.4, creatinine 1.31, a she denies any melanocytic stools, however he has been chronically anemic, with hemoglobin of 11.3 in June 2019, iron studies were requested and is only 5%. Iron infusion to be done, troponin are negative 3, ruled out for any acute coronary event, consult with cardiology, to EKG shows some sinus rhythm with first-degree AV block, right bundle branch block inferior infarct age undetermined Dr. Pisano from cardiology consulted. Echocardiogram was in 2016, a new echocardiogram is ordered for this admission. Patient denies any epigastric discomfort, he does have sternal discomfort, Hemoccult stool requested for the anemia, patient is on dual antiplatelets.. Patient denies any GERD-like symptoms, however he drinks scotch less than 2 ounces on a daily basis Review of Systems Constitutional: Reports as per HPI, Denies anorexia, Denies chills, Denies chronic headaches, Denies chronic pain, Denies daytime sleepiness, Denies fa tigue, Denies fever, Denies lethargy, Denies malaise, Denies night sweats, Denies poor appetite, Denies sweats, Denies weakness, Denies weight gain, Denies weight loss Ears, nose, mouth and throat: Reports as per HPI, Denies ant. neck pain, Denies bleeding gums, Denies dental pain, Denies dysphagia, Denies epistaxis, Denies headache, Denies hoarseness, Denies mouth pain, Denies nasal congestion, Denies nasal discharge, Denies neck fullness/pressure, Denies neck lump, Denies nose pain, Denies odynophagia, Denies post-nasal drip, Denies sinus pain, Denies sinus pressure, Denies swelling in mouth, Denies swelling in throat, Denies sore throat, Denies vertigo, Denies voice changes Cardiovascular: Reports as per HPI, Reports chest pain, Denies claudication, Denies decreased exercise tolerance, Denies dyspnea on exertion, Denies edema, Denies high blood pressure, Denies irregular heart beat, Denies leg edema, Denies lightheadedness, Denies orthopnea, Denies palpitations, Denies paroxysmal nocturnal dyspnea, Denies phlebitis, Denies rapid heart beat, Denies shortness of breath, Denies syncope Respiratory: Reports as per HPI, Denies congestion, Denies cough, Denies cough with sputum, Denies dyspnea, Denies excessive sputum, Denies hemoptysis, Denies home oxygen, Denies pain, Denies pain on inspiration, Denies pleurisy, Denies respiratory infections, Denies sleep apnea, Denies snoring, Denies wheezing Gastrointestinal: Reports as per HPI Genitourinary: Reports as per HPI, Denies decreased libido, Denies difficulties fathering child, Denies discharge, Denies dysuria, Denies erectile dysfunction, Denies flank pain, Denies genital pain, Denies genital sores, Denies hematuria, Denies impotence, Denies incontinence, Denies kidney stones, Denies nocturia, Denies polyuria, Denies testicular lump, Denies testicular pain, Denies urinary frequency, Denies urinary hesitancy, Denies urinary retention Musculoskeletal: Reports as per HPI, Denies arm numbness/tingling, Denies atrophy, Denies fractures, Denies frequent falls, Denies gait dysfunction, Denies hot joints, Denies leg numbness/tingling, Denies limitation of motion, Denies loss of height, Denies low back pain, Denies morning stiffness, Denies muscle cramps, Denies muscle weakness, Denies myalgias, Denies neck pain, Denies neck stiffness, Denies prior amputations, Denies redness of joints, Denies shooting arm pain, Denies shooting leg pain Integumentary: Reports as per HPI Neurological: Reports as per HPI Psychiatric: Reports as per HPI Endocrine: Reports as per HPI Hematologic/Lymphatic: Reports as per HPI Allergic/Immunologic: Reports as per HPI Past Medical History Past Medical History: Coronary Artery Disease (CAD), Cancer, Chest Pain / Angina, GERD/Reflux, Hearing Disorder / Deafness, Hyperlipidemia, Hypertension, Osteoarthritis (OA) Additional Past Medical History / Comment(s): Hx bladder CA. Dr watching blood sugars, borderline per pt. Polio at age 16. Ringing in ears. Chest discomfort for past week, some shortness of breath. History of Any Multi-Drug Resistant Organisms: None Reported Past Surgical History: Back Surgery, Bladder Surgery, Heart Catheterization With Stent, Hernia Repair Additional Past Surgical History / Comment(s): stomach ulcer surgery. CATARACT SURGERY. PTCA W/ 2 Stents 01/2018. bladder cancer exc; back surger (laminectomy apr 2016) Past Anesthesia/Blood Transfusion Reactions: No Reported Reaction Date of Last Stent Placement:: 01/24/2018 Past Psychological History: No Psychological Hx Reported Smoking Status: Former smoker Past Alcohol Use History: Daily Additional Past Alcohol Use History / Comment(s): QUIT SMOKING 1984, STARTED SMOKING 1946, 2 ppd est. 10 drinks per wk avg est. Past Drug Use History: None Reported - Past Family History Father Family Medical History: Cancer Additional Family Medical History / Comment(s): BLADDER CANCER Mother Family Medical History: Coronary Artery Disease (CAD), Diabetes Mellitus Additional Family Medical History / Comment(s): had open heart surgery Brother(s) Family Medical History: Cancer, Coronary Artery Disease (CAD), Deep Vein Thrombosis (DVT) Additional Family Medical History / Comment(s): Lung CA; another had Hodgkin's Daughter(s) Family Medical History: No Reported History Son(s) Family Medical History: No Reported History Medications and Allergies Home Medications Medication Instructions Recorded Confirmed Type Calcium Polycarbophil [Fibercon] 625 mg PO Q72H 03/21/14 09/23/20 History Gabapentin [Neurontin] 200 mg PO HS 01/22/18 09/23/20 History Aspirin 81 mg PO DAILY chew 01/25/18 09/23/20 Rx Nitroglycerin Sl Tabs [Nitrostat] 0.4 mg SUBLINGUAL Q5M PRN #25 tab 01/25/18 09/23/20 Rx Clopidogrel [Plavix] 75 mg PO QAM 02/11/18 09/23/20 History Atorvastatin [Lipitor] 40 mg PO HS 09/23/20 09/23/20 History Metoprolol Succinate [Toprol XL] 12.5 mg PO HS 09/23/20 09/23/20 History amLODIPine [Norvasc] 5 mg PO DAILY 09/23/20 09/23/20 History hydrALAZINE HCL [Apresoline] 50 mg PO BID 09/23/20 09/23/20 History Allergies Allergy/AdvReac Type Severity Reaction Status Date / Time No Known Allergies Allergy Verified 09/23/20 16:02 Physical Exam Vitals: Vital Signs Temp Pulse Pulse Resp BP BP Pulse Ox 09/24/20 08:00 98.6 F 60 16 114/50 94 L 09/24/20 01:18 98.7 F 69 17 121/68 98 09/23/20 17:45 98.0 F 83 18 106/62 99 09/23/20 17:12 97.9 F 83 16 106/62 99 09/23/20 16:34 98.0 F 93 18 154/86 96 09/23/20 15:28 97.9 F 92 16 132/89 98 09/23/20 14:54 97.9 F 98 16 134/91 99 09/23/20 14:30 97.8 F 99 18 168/91 96 09/23/20 13:59 98.5 F 118 H 18 179/137 98 Intake and Output 09/23/20 09/24/20 09/24/20 22:59 06:59 14:59 Intake Total 105.251 200 Balance 105.251 200 Intake: Intake, IV Titration 105.251 Amount Heparin Sod,Pork in 0.45% 105.251 NaCl 25,000 unit In 0.45 % NaCl 1 250ml.bag @ 12 UNITS/KG/HR 9.525 mls/hr IV .Q24H [facility] Rx#: [id number] Oral 200 Other: Weight 79.379 kg - Constitutional General appearance: cooperative, no acute distress - EENT Eyes: edentulous, PERRLA, dentition normal - Neck Neck: normal ROM - Respiratory Respiratory: bilateral: CTA, negative: diminished, dullness, rales - Cardiovascular Rhythm: regular Heart sounds: normal: S1, S2 Abnormal Heart Sounds: no systolic murmur, no diastolic murmur, no rub, no S3 Gallop, no S4 Gallop, no click, no other - Gastrointestinal General gastrointestinal: normal bowel sounds, soft - Integumentary Integumentary: decreased turgor, normal - Musculoskeletal Musculoskeletal: gait normal, strength equal bilaterally - Psychiatric Psychiatric: A&O x's 3, appropriate affect, intact judgment & insight Results CBC & Chem 7: 09/24/20 07:10 09/23/20 14:08 Labs: Abnormal Lab Results - Last 24 Hours (Table) 09/23/20 09/23/20 09/23/20 Range/Units 14:08 14:08 22:03 WBC 13.4 H (3.8-10.6) k/uL RBC (4.30-5.90) m/uL Hgb 11.4 L (13.0-17.5) gm/dL Hct 33.4 L (39.0-53.0) % MCV 75.4 L (80.0-100.0) fL RDW 15.9 H (11.5-15.5) % Neutrophils # 10.6 H (1.3-7.7) k/uL Monocytes # (0-1.0) k/uL APTT 33.7 H (22.0-30.0) sec BUN 29 H (9-20) mg/dL Creatinine 1.31 H (0.66-1.25) mg/dL Glucose 114 H (74-99) mg/dL 09/24/20 09/24/20 Range/Units 07:10 07:10 WBC (3.8-10.6) k/uL RBC 3.69 L (4.30-5.90) m/uL Hgb 9.7 L D (13.0-17.5) gm/dL Hct 28.0 L (39.0-53.0) % MCV 75.8 L (80.0-100.0) fL RDW 16.0 H (11.5-15.5) % Neutrophils # (1.3-7.7) k/uL Monocytes # 1.1 H (0-1.0) k/uL APTT 134.4 H* (22.0-30.0) sec BUN (9-20) mg/dL Creatinine (0.66-1.25) mg/dL Glucose (74-99) mg/dL Laboratory Results WBC 9.7 k/uL (3.8-10.6) 09/24/20 07:10 RBC 3.69 m/uL (4.30-5.90) L 09/24/20 07:10 Hgb 9.7 gm/dL (13.0-17.5) L D 09/24/20 07:10 Hct 28.0 % (39.0-53.0) L 09/24/20 07:10 MCV 75.8 fL (80.0-100.0) L 09/24/20 07:10 MCH 26.2 pg (25.0-35.0) 09/24/20 07:10 MCHC 34.6 g/dL (31.0-37.0) 09/24/20 07:10 RDW 16.0 % (11.5-15.5) H 09/24/20 07:10 Plt Count 242 k/uL (150-450) 09/24/20 07:10 MPV 7.6 09/24/20 07:10 Neutrophils % 70 % 09/24/20 07:10 Lymphocytes % 16 % 09/24/20 07:10 Monocytes % 11 % 09/24/20 07:10 Eosinophils % 0 % 09/24/20 07:10 Basophils % 1 % 09/24/20 07:10 Neutrophils # 6.8 k/uL (1.3-7.7) 09/24/20 07:10 Lymphocytes # 1.6 k/uL (1.0-4.8) 09/24/20 07:10 Monocytes # 1.1 k/uL (0-1.0) H 09/24/20 07:10 Eosinophils # 0.0 k/uL (0-0.7) 09/24/20 07:10 Basophils # 0.1 k/uL (0-0.2) 09/24/20 07:10 Microcytosis Slight 09/24/20 07:10 PT 9.9 sec (9.0-12.0) 09/23/20 14:08 INR 0.9 (<1.2) 09/23/20 14:08 APTT 134.4 sec (22.0-30.0) H* 09/24/20 07:10 Sodium 137 mmol/L (137-145) 09/23/20 14:08 Potassium 3.8 mmol/L (3.5-5.1) 09/23/20 14:08 Chloride 103 mmol/L (98-107) 09/23/20 14:08 Carbon Dioxide 22 mmol/L (22-30) 09/23/20 14:08 Anion Gap 12 mmol/L 09/23/20 14:08 BUN 29 mg/dL (9-20) H 09/23/20 14:08 Creatinine 1.31 mg/dL (0.66-1.25) H 09/23/20 14:08 Est GFR (CKD-EPI)AfAm 58 (>60 ml/min/1.73 sqM) 09/23/20 14:08 Est GFR (CKD-EPI)NonAf 50 (>60 ml/min/1.73 sqM) 09/23/20 14:08 Glucose 114 mg/dL (74-99) H 09/23/20 14:08 Calcium 9.6 mg/dL (8.4-10.2) 09/23/20 14:08 Magnesium 2.0 mg/dL (1.6-2.3) 09/23/20 14:08 Iron 15 ug/dL (65-175) L 09/24/20 07:10 TIBC 299 ug/dL (228-460) 09/24/20 07:10 % Saturation 5.02 (15.00-50.00) L 09/24/20 07:10 Total Bilirubin 0.4 mg/dL (0.2-1.3) 09/23/20 14:08 AST 33 U/L (17-59) 09/23/20 14:08 ALT 19 U/L (4-49) 09/23/20 14:08 Alkaline Phosphatase 93 U/L (38-126) 09/23/20 14:08 Troponin I <0.012 ng/mL (0.000-0.034) 09/23/20 19:30 NT-Pro-B Natriuret Pep 431 pg/mL 09/23/20 14:08 Total Protein 7.6 g/dL (6.3-8.2) 09/23/20 14:08 Albumin 4.3 g/dL (3.5-5.0) 09/23/20 14:08 Triglycerides 69.0 mg/dL (0.0-149.0) 09/24/20 07:10 Cholesterol 120 mg/dL (0-200) 09/24/20 07:10 LDL Cholesterol, Calc 66.2 mg/dL (0.0-131.0) 09/24/20 07:10 VLDL Cholesterol, Calc 13.80 mg/dL (5.00-40.00) 09/24/20 07:10 HDL Cholesterol 40.0 mg/dL (40.0-60.0) 09/24/20 07:10 Cholesterol/HDL Ratio 3.00 09/24/20 07:10 Lipase 150 U/L (23-300) 09/23/20 14:08 Coronavirus (PCR) Not Detected (Not Detectd) 09/23/20 16:34 Thrombosis Risk Factor Assmnt - Choose All That Apply Each Risk Factor Represents 3 Points: Age 75 years or older Thrombosis Risk Factor Assessment Total Risk Factor Score: 3 Thrombosis Risk Factor Assessment Level: Moderate Risk Assessment and Plan Plan: 1. Chest pain, suspect unstable angina, known history of CAD, EKG shows inferior WI possibly old, nitrates added by cardiology, long-acting Imdur 30 mg daily Patient was started on heparin drip, and was discontinued by cardiology after full eval aspirin 325 mg once every day, Lipitor 40 mg orally once every day, metoprolol 12.5 mg orally twice every day Echocardiogram will be obtained as well. Currently pending Cardiac cath performed , coronary disease stenosis noted, 2. Hypertension and hypertensive cardio vascular disease. Patient used to be on losartan 100 mg orally once every day , unsure the reason why this was not present in his medical panel patient's continue on as well as metoprolol 12.5 mg orally once every day. Patient's on hydralazine 50 twice a day, creatinine is at 1.3, no hyperkalemia noted 3. Iron deficiency anemia, iron studies showed 5% iron saturation, I marcos 200 mg infusion to be given x 1 dose 3. Hyperlipidemia. Continue Lipitor 80 mg orally once every day. 4. Peripheral neuropathy. Continue gabapentin 200 mg at bedtime. 5. Post polio. 6. DVT prophylaxis. Currently on heparin drip. 7. GI prophylaxis. Continue PPI. 8. Admit to inpatient. Estimate a length of stay 2 midnights. 9. Full code.
[2020-09-24] MEDS ORDERED: GABAPENTIN 100 MG CAP PO SCH (21:00)
[2020-09-24] MEDS ORDERED: METOPROLOL SUCCINATE (ER) 25 MG TAB.ER.24H PO SCH (21:00)
[2020-09-24] MEDS ORDERED: ATORVASTATIN 40 MG TAB PO SCH (21:00)
[2020-09-25 06:21] LABS: Basophils # (A) 0.1 k/uL (0-0.2); Basophils % (A) 1 %; Eosinophils # (A) 0.2 k/uL (0-0.7); Eosinophils % (A) 2 %; HCT 28.1 % (39.0-53.0); HGB 9.4 gm/dL (13.0-17.5); Lymphocytes # (A) 1.3 k/uL (1.0-4.8); Lymphocytes % (A) 15 %; MCH 25.5 pg (25.0-35.0); MCHC 33.3 g/dL (31.0-37.0); MCV 76.4 fL (80.0-100.0); Mean Platelet Volume 7.2; Microcytosis Slight; Monocytes # (A) 0.7 k/uL (0-1.0); Monocytes % (A) 8 %; Neutrophils # (A) 5.8 k/uL (1.3-7.7); Neutrophils % (A) 71 %; Platelet Count 228 k/uL (150-450); RBC 3.68 m/uL (4.30-5.90); RDW 15.8 % (11.5-15.5); WBC 8.2 k/uL (3.8-10.6)
[2020-09-25] MEDS: SODIUM CHLORIDE 0.9% 1,000 ML IV SCH (07:11)
[2020-09-25] MEDS ORDERED: PANTOPRAZOLE 40 MG TABLET PO SCH (07:30)
--- NOTE | 2020-09-25 08:08 | P.DS ---
Providers Date of admission: 09/23/20 15:49 Expected date of discharge: 09/25/20 Attending physician: Valdez Cortez Consults: 09/23/20 15:57 Consult Physician Urgent Consulting Provider: Patrick Hay Consult Reason/Comments: chest pressure Do you want consulting provider notified?: Yes Primary care physician: Valdez Diego [facility] Course: This is an 82-year-old male one of Dr. Cortez with a previous medical history significant for hypertension and hypertensive cardiovascular disease with left ventricular hypertrophy, hyperlipidemia, GERD, patient presented to the emergency department at [facility] yesterday with the recurrent chest pain that occurred at rest, patient has been physically active using the [employer] bike, 5 minutes 3 times a week however he does not have any chest pain at that time, and chest tightness 1 day prior to admission. He had a heart cath performed on 07/13/2019 for which there is a critical disease in the stented RCA 95%, and there is a distal 50% RCA lesion, and a PDA PLB lesion. Stented circumflex January 2018 patent no more than 30-35% narrowing of anterior descending artery is free of disease with moderate calcification In the emergency room hemoglobin noted to be 11.4, creatinine 1.31, a she denies any melanocytic stools, however he has been chronically anemic, with hemoglobin of 11.3 in June 2019, iron studies were requested and is only 5%. Iron infusion to be done, troponin are negative 3, ruled out for any acute coronary event, consult with cardiology, to EKG shows some sinus rhythm with first-degree AV block, right bundle branch block inferior infarct age undetermined Dr. Pisano from cardiology consulted. Echocardiogram was in 2017, a new echocardiogram is ordered for this admission. Patient denies any epigastric discomfort, he does have sternal discomfort, Hemoccult stool requested for the anemia, patient is on dual antiplatelets.. Patient denies any GERD-like symptoms, however he drinks scotch less than 2 ounces on a daily basis 09/25: Patient has been afebrile, heart rate 70, blood pressure 148/71, pulse ox 94% on room air. Repeat blood work reveals Cassandra BC 8.2, hemoglobin 9.4, platelet count 228. Electrolytes normal. Creatinine 1.3. Blood sugar 114. Liver function tests normal. Iron studies revealed iron of 15, TIBC 299, iron saturation 5.0 to. Stool for occult blood negative. Triglycerides 69, cholesterol 120, LDL 66, HDL 40. Patient has been seen by cardiology and he had a previous stress test on 4 months ago that was normal. Due to anemia, patient will receive Ferrlecit prior to discharge and in the office further testing will be addressed then. Patient will be discharged home today in stable condition. Discharge diagnoses: 1. Chest pain 2. Hypertension and hypertensive cardio vascular disease 3. Iron deficiency anemia 3. Hyperlipidemia. 4. Peripheral neuropathy. 5. Post polio. Discharge plan: Home Impression and plan of care have been directed as dictated by the signing physician. Alanis Washington nurse practitioner acting as scribe for signing physician. Patient Condition at Discharge: Good Plan - Discharge Summary Discharge Rx Participant: No New Discharge Prescriptions: New Isosorbide Mononitrate ER [Imdur] 30 mg PO DAILY #30 tab.er.24h Pantoprazole [Protonix] 40 mg PO AC-BRKFST #30 tablet.dr Continue Calcium Polycarbophil [Fibercon] 625 mg PO Q72H Gabapentin [Neurontin] 200 mg PO HS Aspirin 81 mg PO DAILY chew Nitroglycerin Sl Tabs [Nitrostat] 0.4 mg SUBLINGUAL Q5M PRN #25 tab PRN Reason: Chest Pain Clopidogrel [Plavix] 75 mg PO QAM Metoprolol Succinate [Toprol XL] 12.5 mg PO HS hydrALAZINE HCL [Apresoline] 50 mg PO BID Atorvastatin [Lipitor] 40 mg PO HS amLODIPine [Norvasc] 5 mg PO DAILY Discharge Medication List Calcium Polycarbophil [Fibercon] 625 mg PO Q72H 03/21/14 [History] Gabapentin [Neurontin] 200 mg PO HS 01/22/18 [History] Aspirin 81 mg PO DAILY chew 01/25/18 [Rx] Nitroglycerin Sl Tabs [Nitrostat] 0.4 mg SUBLINGUAL Q5M PRN #25 tab 01/25/18 [Rx] Clopidogrel [Plavix] 75 mg PO QAM 02/11/18 [History] Atorvastatin [Lipitor] 40 mg PO HS 09/23/20 [History] Metoprolol Succinate [Toprol XL] 12.5 mg PO HS 09/23/20 [History] amLODIPine [Norvasc] 5 mg PO DAILY 09/23/20 [History] hydrALAZINE HCL [Apresoline] 50 mg PO BID 09/23/20 [History] Isosorbide Mononitrate ER [Imdur] 30 mg PO DAILY #30 tab.er.24h 09/25/20 [Rx] Pantoprazole [Protonix] 40 mg PO AC-BRKFST #30 tablet. 09/25/20 [Rx] Follow up Appointment(s)/Referral(s): Valdez Cortez MD [Primary Care Provider] - 09/28/20 1:15 pm Patient Instructions/Handouts: Angina (DC) Discharge Disposition: HOME SELF-CARE
[2020-09-25] MEDS ORDERED: SODIUM FERRIC GLUCONAT-SUCROSE 125 MG in SODIUM CHLORIDE 0.9% 100 ML IVPB ONE (08:15)
[2020-09-25 08:42] LABS: African American GFR (CKD) 58.5 (60.0-200.0); Albumin 3.9 g/dL (3.80-4.90); Albumin/Globulin Ratio 1.95 (1.60-3.17); Anion Gap 7.7 mmol/L (4.00-12.00); BUN/Creat Ratio 16.92 Ratio (12.00-20.00); Calcium 8.8 mg/dL (8.7-10.3); Carbon Dioxide 26.3 mmol/L (21.6-31.8); Non-African American GFR(CKD) 50.5 (60.0-200.0); Total Bilirubin 0.4 mg/dL (0.3-1.2); Total Protein 5.9 g/dL (6.2-8.2)
[2020-09-25] MEDS: amLODIPine 5 MG TAB PO SCH (08:44)
[2020-09-25] MEDS: ASPIRIN 81 MG PO SCH (08:45)
[2020-09-25] MEDS: CLOPIDOGREL 75 MG TAB PO SCH (08:45)
[2020-09-25] MEDS: SENNOSIDES-DOCUSATE SODIUM 1 EACH TAB PO SCH (08:45)
[2020-09-25] MEDS: ISOSORBIDE MONONITRATE ER 30 MG TAB.ER.24H PO SCH (08:45)
[2020-09-25] MEDS: hydrALAZINE HCL 50 MG TAB PO SCH (08:45)
[2020-09-25 08:48] VITALS: BP 148/71; PULSE 70; RESP 16; TEMP 97.6
== END 2020-09-25 10:53 | disposition home or self-care (01) ==
LOC: EC 13:58 → 6NMEDSUR 15:49
PROVIDERS: ADMIT Internal Medicine Geriatric Medicine; ATTEND Internal Medicine Geriatric Medicine
DX: R07.89 Other chest pain (principal); I11.9 Hypertensive heart disease without heart failure; D50.9 Iron deficiency anemia, unspecified; E78.5 Hyperlipidemia, unspecified; G62.9 Polyneuropathy, unspecified; I25.10 Atherosclerotic heart disease of native coronary artery without angina pectoris; I45.10 Unspecified right bundle-branch block; I44.0 Atrioventricular block, first degree; H91.90 Unspecified hearing loss, unspecified ear; K21.9 Gastro-esophageal reflux disease without esophagitis; M19.90 Unspecified osteoarthritis, unspecified site; H93.19 Tinnitus, unspecified ear; Z79.02 Long term (current) use of antithrombotics/antiplatelets; Z79.899 Other long term (current) drug therapy; Z79.82 Long term (current) use of aspirin; Z86.12 Personal history of poliomyelitis; I25.2 Old myocardial infarction; Z98.890 Other specified postprocedural states; Z95.5 Presence of coronary angioplasty implant and graft; Z85.51 Personal history of malignant neoplasm of bladder; Z87.11 Personal history of peptic ulcer disease; Z87.891 Personal history of nicotine dependence; Z80.52 Family history of malignant neoplasm of bladder; Z82.49 Family history of ischemic heart disease and other diseases of the circulatory system; Z83.3 Family history of diabetes mellitus; Z80.1 Family history of malignant neoplasm of trachea, bronchus and lung; Z80.7 Family history of other malignant neoplasms of lymphoid, hematopoietic and related tissues
CPT/HCPCS: 96376 ×2; 96366 ×3; 93005 ×2; 96365; 96375; 99285; 36415; 83880; 80061; 80053 ×2; 83540; 83550; 83690; 83735; 84484; 85025 ×3; 85610; 85730 ×2; 82272; 87635; 71046; G0378 ×3; J1644 ×3; J2916; J2270

== ENCOUNTER → 2024-02-23 | Outpatient (CLI) | payer MEDICARE ==
[2024-02-23 09:15] LABS: Anisocytosis Slight; Basophils # (A) 0.1 k/uL (0-0.2); Basophils % (A) 1 %; Eosinophils # (A) 0.3 k/uL (0-0.7); Eosinophils % (A) 4 %; HCT 32.1 % (39.0-53.0); HGB 10.1 gm/dL (13.0-17.5); Lymphocytes # (A) 1.5 k/uL (1.0-4.8); Lymphocytes % (A) 20 %; MCHC 31.4 g/dL (31.0-37.0); MCV 79.7 fL (80.0-100.0); Mean Platelet Volume 8.4; Microcytosis Slight; Monocytes # (A) 0.4 k/uL (0-1.0); Monocytes % (A) 6 %; Neutrophils % (A) 68 %; Platelet Count 231 k/uL (150-450); RBC 4.03 m/uL (4.30-5.90); RDW 18.5 % (11.5-15.5); WBC 7.5 k/uL (3.8-10.6)
[2024-02-23 15:22] LABS: Blood Urea Nitrogen 33.6 mg/dL (9.0-27.0); Carbon Dioxide 19.3 mmol/L (21.6-31.8); Chloride 106 mmol/L (96-109); Potassium 4.9 mmol/L (3.5-5.5); Sodium 138 mmol/L (135-145)
== END | disposition home or self-care (01) ==
LOC: LABPAT 08:52
PROVIDERS: ATTEND Internal Medicine Interventional Cardiology
DX: Z01.812 Encounter for preprocedural laboratory examination (principal); D64.9 Anemia, unspecified; R94.39 Abnormal result of other cardiovascular function study
CPT/HCPCS: 80051; 82565; 84520; 85025

== ENCOUNTER 2024-03-01 08:44 | Day surgery (SDC) | payer MEDICARE ==
[~2024-03-01 08:44] MED LIST changes: -ASPIRIN 325 MG TAB PO STA; -ATORVASTATIN 80 MG TAB PO STA; -SODIUM CHLORIDE 0.9% 1,000 ML in EMPTY BAG 1 BAG IV ONE
[2024-03-01] MEDS: SODIUM CHLORIDE 0.9% 1,000 ML in EMPTY BAG 1 BAG IV SCH (09:03)
[2024-03-01] MEDS: IV FLUID CONTINUATION 1,000 ML IV ONE (09:04)
[2024-03-01] MEDS: ASPIRIN 325 MG TAB PO ONE (09:04)
[2024-03-01] MEDS ORDERED: HEPARIN SODIUM 1,000 UN/ML (10ML VL) ONE (10:06)
[2024-03-01] MEDS ORDERED: LIDOCAINE 1% INJ 10MG/ML (20 ML MDV) ONE (10:09)
[2024-03-01] MEDS ORDERED: fentaNYL (PF) 50 MCG/ML 2 ML AMP ONE (10:09)
[2024-03-01] MEDS ORDERED: VERAPAMIL 2.5 MG/ML 2 ML AMP ONE (10:09)
[2024-03-01] MEDS: MIDAZOLAM 2 MG/2 ML VIAL IVP ONE (10:56)
[2024-03-01] MEDS: LIDOCAINE 1% INJ 10MG/ML (20 ML MDV) SQ ONE (11:04)
[2024-03-01] MEDS: HEPARIN SODIUM 1,000 UN/ML (10ML VL) IV ONE (11:22)
[2024-03-01] MEDS: IOPAMIDOL-370 100ML BTL INJ ONE ×2 (11:50→12:20)
[2024-03-01] MEDS ORDERED: CLOPIDOGREL 75 MG TAB ONE (12:04)
[2024-03-01] MEDS: CLOPIDOGREL 75 MG TAB PO ONE (12:10)
[2024-03-01] MEDS: NITROGLYCERIN 1000MCG/10ML SYRINGE INTRACORON ONE (12:17)
--- NOTE | 2024-03-01 12:42 | P.CARDCATH ---
Date of Procedure: 03/01/24 Description of Procedure: History: Patient was referred for cardiac catheterization to evaluate for CAD. Clinical information: This is a 88-year-old gentleman with a known history of heavily calcified multivessel coronary disease with previous PCI of RCA and circumflex. The last intervention was of the proximal RCA and in-stent restenosis in June 2019. At that time the circumflex stent was patent and LAD did not have significant disease. Because of symptoms of exertional shortness of breath and abnormal stress test with inferior wall reversible defect he was advised coronary angiography and possible PCI and brought in for the procedure after due discussion regarding risks benefits and options Procedure Details: #1 left heart catheterization and coronary angiography #2 PTCA and stenting of bifurcation lesion in the dominant RCA with provisional stenting of distal RCA and PLV--PDA widely patent with brisk flow. The risks, benefits, complications, treatment options, and expected outcomes were discussed with the patient. The patient and/or family concurred with the proposed plan, giving informed consent. Patient was brought to the medical laboratory technicians after IV hydration was begun and oral premedication was given. Patient was further sedated with midazolam. Patient was prepped and draped in the usual manner. Under strict aseptic precautions and local anesthesia a 6 Khmer introducer was placed in the right femoral artery. Using standard Rusty catheters I performed coronary angiography and the same right catheter was used to check LV pressures. LV gram was not performed. Following the coronary angiography procedure he had PCI of distal RCA dominant vessel along with bifurcation stenting into the PLV. PDA remained widely patent. It was a resistant vessel requiring high-pressure inflation with a 2.75 caliber 15 mm long Xience stent and dilated with a 3.5 caliber 8 mm long NC trek balloon. Moderate conscious sedation time was 87 minutes. Patient's oxygen saturation hemodynamics and EKG were monitored closely. After the procedure was completed the sheaths and catheters were all removed. Hemostasis was achieved with Angio-Seal device. Findings: Hemodynamics: Left ventricle end-diastolic pressure was 9 mmHg without any gradient across aortic valve Left Main: Short patent calcified vessel no significant disease bifurcates into LAD and circumflex LAD: Good caliber vessel has moderate 30 to 40% disease. No significant disease in the septal and diagonal branches CIRC: Nondominant vessel, previously stented circumflex marginal is widely patent with good flow RCA: Very dominant vessel proximal restenotic lesion that was stented in 2019 is widely patent with brisk flow. Distally there is a 70% lesion in the distal RCA heavily calcified and it extends into the PLV and the lesion at the PLV ostium is almost 90%. PDA has a 40% lesion with good flow LV: Not performed Closure Device: Angio-Seal Complications: None Estimated Blood Loss: Minimal Impression: This patient has a right dominant system, normal filling pressures no gradient. Significant lesion in the distal RCA extending into the PLV branch of 70 to 95%. PDA has a 40% lesion. Previously stented circumflex marginal is free of significant disease and LAD has noncritical 40% narrowing. Pre Procedure Diagnosis: Unstable angina with CAD Postprocedure diagnosis: Unstable angina with CAD Final Post Procedure Diagnosis: Unstable angina with CAD Recommendation: PCI of distal RCA and PLV branch performed in the same setting PCI procedure details: I used a KR H guide catheter to cannulate the right coronary artery. A run-through wire was used to cross the lesion in the PLV branch. Another wire was advanced into the PDA branch and this was a whisper wire. I predilated the distal RCA and PLV lesion with a 2.5 caliber NC trek 15 mm long balloon. I then deployed a 15 mm long 2.75 caliber Xience stent into the PLV branch. Midportion of the stent was not opened up because of heavy calcification. I used a 3.0 caliber 8 mm long NC trek balloon to dilate this area. I had difficulty with guide support. After much manipulation, I was unsuccessful in advancing a chocolate balloon and therefore I used a 3.5 caliber 8 mm long NC trek balloon and dilated the entire length of the 15 mm long stent with excellent angiographic result. A wire was then advanced and positioned back into the PDA prior to this. The PDA flow was excellent well-preserved with no significant lesion in multiple projections. Patient received a total of 6000 units of heparin. ACT was 250 additional 1000 units was then given. He received 300 mg of Plavix. He was already on aspirin and Plavix. Aspirin and Plavix will be continued for 1 year without interruption. Complications: None; patient tolerated the procedure well. Excellent angiographic result was achieved without complication. Patient has a 2.75 caliber Xience stent from the distal RCA into the PLV that was postdilated with a 3.5 caliber NC trek balloon. Flow in the PDA remained excellent without significant lesion. Provisional stenting was therefore performed. Disposition: Telemetry unit- hemodynamically stable. Condition: Stable Discharge Disposition: Discharge patient home in 24 hours.
[2024-03-01] MEDS ORDERED: ATROPINE SULFATE 0.1 MG/ML 10ML SYRINGE IV PRN (12:46)
[2024-03-01] MEDS ORDERED: MAG HYDROX/AL HYDROX/SIMETH 30 ML CUP PO PRN (12:46)
[2024-03-01] MEDS ORDERED: ZOLPIDEM 5 MG TAB PO PRN (12:46)
[2024-03-01] MEDS ORDERED: RX INFO: IV CONTRAST WAS GIVEN 1 EACH MISC MISCELLANE PRN (12:46)
[2024-03-01] MEDS: PANTOPRAZOLE 40 MG TABLET PO SCH (16:37)
[2024-03-01 16:40] LABS: Glucose,Whole Blood 291 mg/dL (70-110)
[2024-03-01] MEDS: INSULIN ASPART (NovoLOG) 100 UNIT/ML VIAL SQ SCH (17:09)
[2024-03-01 20:05] LABS: Glucose,Whole Blood 83 mg/dL (70-110)
[2024-03-01] MEDS: ATORVASTATIN 80 MG TAB PO SCH (20:18)
[2024-03-01] MEDS: hydrALAZINE HCL 50 MG TAB PO SCH (20:18)
[2024-03-01] MEDS: METOPROLOL SUCCINATE (ER) 25 MG TAB.ER.24H PO SCH (20:18)
[2024-03-02 05:43] LABS: Glucose,Whole Blood 103 mg/dL (70-110)
[2024-03-02] MEDS: ASPIRIN 81 MG PO SCH (08:00)
[2024-03-02] MEDS: amLODIPine 5 MG TAB PO SCH (08:00)
[2024-03-02] MEDS: CLOPIDOGREL 75 MG TAB PO SCH (08:00)
[2024-03-02] MEDS: SPIRONOLACTONE-HCTZ 25-25MG 1 EACH TAB PO SCH (08:00)
[2024-03-02] MEDS: FERROUS SULFATE 325 MG TAB PO SCH (08:00)
--- NOTE | 2024-03-02 08:07 | DS ---
DISCHARGE SUMMARY DIAGNOSES: 1. Unstable angina with history of multivessel PCI. 2. Hypertension. 3. Hyperlipidemia. HOSPITAL COURSE: Mr. Oviedo is an 88-year-old gentleman with a known history of CAD, prior PCI of RCA and circumflex, has been having exertional shortness of breath and abnormal stress test with inferolateral reversible defect. He was advised coronary angiography and PCI. Cardiac cath from right femoral approach revealed a 90% stenosis involving the PLV branch at the ostium and distal RCA of 70% to 80%. This was addressed with a 2.75 caliber Xience stent and dilated with an NC Trek balloon of 3.5 caliber with excellent result. The flow in PDA was excellent. Provisional stenting of this bifurcation lesion was performed without any need for intervention of the PDA. Excellent result was achieved. Postprocedure course was unremarkable. Right groin is clean and dry. PHYSICAL EXAMINATION: VITALS: Stable. NECK: No JVD. HEART: S1, S2 heard normally, short systolic murmur noted. LUNGS: Clear. ABDOMEN: Unremarkable. LOWER EXTREMITIES: Unremarkable. EKG revealed sinus mechanism, right bundle, no new changes. Labs are pending. We will increase activity. Check the labs and discharge the patient. He will be seen in the office on the . Discharge instructions were given. MMODL / IJN: [id number] /
[2024-03-02 08:10] VITALS: BP 151/67; PULSE 60; RESP 16; TEMP 98
[2024-03-02 09:53] LABS: Anisocytosis Slight; Basophils # (A) 0.1 k/uL (0-0.2); Basophils % (A) 1 %; Eosinophils # (A) 0.2 k/uL (0-0.7); Eosinophils % (A) 3 %; HCT 29.4 % (39.0-53.0); HGB 9.3 gm/dL (13.0-17.5); Lymphocytes # (A) 1.2 k/uL (1.0-4.8); Lymphocytes % (A) 14 %; MCH 25.4 pg (25.0-35.0); MCHC 31.7 g/dL (31.0-37.0); MCV 80.3 fL (80.0-100.0); Mean Platelet Volume 7.1; Microcytosis Slight; Monocytes # (A) 0.6 k/uL (0-1.0); Monocytes % (A) 7 %; Neutrophils # (A) 6.1 k/uL (1.3-7.7); Neutrophils % (A) 74 %; Platelet Count 212 k/uL (150-450); RBC 3.67 m/uL (4.30-5.90); RDW 18.1 % (11.5-15.5); WBC 8.3 k/uL (3.8-10.6)
[2024-03-02 10:01] LABS: African American GFR (CKD) 46 (>60 ml/min/1.73 sqM); Anion Gap 7 mmol/L; Blood Urea Nitrogen 24 mg/dL (9-20); Calcium 8.6 mg/dL (8.4-10.2); Carbon Dioxide 20 mmol/L (22-30); Chloride 112 mmol/L (98-107); Glucose 133 mg/dL (74-99); Non-African American GFR(CKD) 39 (>60 ml/min/1.73 sqM); Potassium 4.2 mmol/L (3.5-5.1); Sodium 139 mmol/L (137-145)
[2024-03-02 11:35] LABS: Glucose,Whole Blood 111 mg/dL (70-110)
== END 2024-03-02 11:56 | disposition home or self-care (01) ==
LOC: CATHCVL 08:44 → 3SCARD 15:55 → CATHCVL 03-02 11:56
PROVIDERS: ATTEND Internal Medicine Interventional Cardiology
DX: I25.110 Atherosclerotic heart disease of native coronary artery with unstable angina pectoris (principal); Z95.5 Presence of coronary angioplasty implant and graft; I10 Essential (primary) hypertension; E78.5 Hyperlipidemia, unspecified
CPT/HCPCS: 93458; 80048; 85025; C9600; C1760; C1769 ×4; C1887; C1894 ×2; C1725 ×4; J2250; J2001; J1644; Q9967; J2305

== ENCOUNTER → 2024-03-05 | Outpatient (CLI) | payer MEDICARE ==
[2024-03-05 15:35] LABS: Blood Urea Nitrogen 33.8 mg/dL (9.0-27.0); Carbon Dioxide 18.9 mmol/L (21.6-31.8); Chloride 107 mmol/L (96-109); Glucose 116 mg/dL (70-110); Potassium 4.4 mmol/L (3.5-5.5); Sodium 140 mmol/L (135-145)
[2024-03-05 15:46] LABS: HCT 30.7 % (39.6-50.0); HGB 9.4 g/dL (13.0-17.0); MCH 24.7 pg (27.0-32.0); MCHC 30.6 g/dL (32.0-37.0); MCV 80.6 FL (80.0-97.0); Mean Platelet Volume 10.4 FL (9.5-12.2); NRBC Per 100 WBC 0 X 10*3/uL (0.00-0.01); Platelet Count 227 X 10*3/uL (140-440); RBC 3.81 X 10*6/uL (4.40-5.60); RDW 19.4 % (11.5-14.5)
== END | disposition home or self-care (01) ==
LOC: LABWHC1 08:08
PROVIDERS: ATTEND Internal Medicine Interventional Cardiology
DX: I25.10 Atherosclerotic heart disease of native coronary artery without angina pectoris (principal); I10 Essential (primary) hypertension
CPT/HCPCS: 36415; 80048; 85027

== ENCOUNTER → 2024-03-15 | Outpatient (CLI) | payer MEDICARE ==
[2024-03-15 17:18] LABS: BUN/Creat Ratio 15.53 Ratio (12.00-20.00); Blood Urea Nitrogen 26.4 mg/dL (9.0-27.0); Calcium 8.9 mg/dL (8.7-10.3); Carbon Dioxide 17.2 mmol/L (21.6-31.8); Chloride 106 mmol/L (96-109); Glucose 120 mg/dL (70-110); Potassium 4.6 mmol/L (3.5-5.5); Sodium 139 mmol/L (135-145)
== END | disposition home or self-care (01) ==
LOC: LABWHC1 07:53
PROVIDERS: ATTEND Nurse Practitioner
DX: I10 Essential (primary) hypertension (principal); I25.10 Atherosclerotic heart disease of native coronary artery without angina pectoris
CPT/HCPCS: 36415; 80048